=== PATIENT | male | born 1935 | race Caucasian/White ===

== ENCOUNTER 2018-01-08 18:39 | Observation (INO) | payer MEDICARE ==
[~2018-01-08] VITALS: Ht 180.3 cm; Wt 83.9 kg
[2018-01-08] MEDS ORDERED: DOXEPIN HCL25 MG PO (19:20)
[2018-01-08] MEDS ORDERED: TAMSULOSIN HCL0.4 MG PO (19:21)
[2018-01-08] MEDS ORDERED: RANITIDINE HCL150 M1 PO (19:21)
[2018-01-08] MEDS ORDERED: NEXIUM40 MG PO (19:22)
[2018-01-08] MEDS ORDERED: JANUVIA100 MG PO (19:22)
[2018-01-08] MEDS ORDERED: ATORVASTATIN CA20 MG PO (19:22)
[2018-01-08] MEDS ORDERED: FOSINOPRIL SODI20 MG PO (19:23)
[2018-01-08] MEDS ORDERED: FENOFIBRATE145 MG PO (19:23)
[2018-01-08] MEDS ORDERED: FUROSEMIDE40 MG PO (19:24)
[2018-01-08] MEDS ORDERED: AMLODIPINE BESYL5 MG PO (19:24)
[2018-01-08] MEDS ORDERED: LEXAPRO10 MG PO (19:25)
[2018-01-08] MEDS ORDERED: PIOGLITAZONE HC45 MG PO (19:25)
[2018-01-08] MEDS ORDERED: NAMENDA10 MG PO (19:26)
[2018-01-08] MEDS ORDERED: ARICEPT5 MG PO (19:27)
[2018-01-08] MEDS ORDERED: GLIPIZIDE ER5 MG PO (19:27)
[2018-01-08] MEDS ORDERED: ASPIRIN 81 MG CHEW TAB PO ONE (20:15)
[2018-01-08 20:16] LABS: BASOPHILS # (AUTO) 0.1 (0.0-0.1); EOSINOPHILS # (AUTO) 0.2 (0.0-0.4); EOSINOPHILS % 2.8 % (0.0-6.0); HEMATOCRIT 39.7 % (38.2-49.6); HEMOGLOBIN 13.8 g/dL (14.0-18.0); LYMPHOCYTES # (AUTO) 2.3 (1.0-3.2); LYMPHOCYTES % 29.3 % (18.0-39.1); MEAN CORPUSCULAR HGB CONC 34.8 g/dL (31-35); MONOCYTES # (AUTO) 1.2 (0.2-0.8); MONOCYTES % 15.6 % (4.4-11.3); NEUTROPHILS # (AUTO) 3.8 (2.1-6.9); NEUTROPHILS % 49.1 % (38.7-80.0); PLATELET COUNT 108 x10e3/uL (140-360); RED BLOOD COUNT 4.18 x10e6/uL (4.3-5.7)
[2018-01-08 20:20] LABS: INR 1.09; PARTIAL THROMBOPLASTIN TIME 27.2 seconds (23.8-35.5); PROTHROMBIN TIME 13.3 seconds (11.9-14.5)
[2018-01-08 20:30] LABS: ALBUMIN 3.6 g/dL (3.5-5.0); ALBUMIN/GLOBULIN RATIO 1.2 (0.8-2.0); ANION GAP 15.4 mmol/L (8-16); CALCIUM 10.6 mg/dL (8.4-10.2); CREATININE, SERUM 1.41 mg/dL (0.72-1.25); MAGNESIUM 1.8 MG/DL (1.3-2.1); POTASSIUM 3.4 mmol/L (3.5-5.1)
[2018-01-08 20:32] LABS: BILIRUBIN,URINE NEGATIVE (NEGATIVE); CLARITY,URINE CLEAR (CLEAR); COLOR,URINE YELLOW (YELLOW); KETONES,URINE NEGATIVE (NEGATIVE); LEUKOCYTE ESTERASE ,URINE NEGATIVE (NEGATIVE); NITRITE,URINE NEGATIVE (NEGATIVE); PROTEIN,URINE DIPSTICK NEGATIVE (NEGATIVE); URINE UROBILINOGEN 1 mg/dL (0.2 - 1)
[2018-01-08 20:45] LABS: BACTERIA,URINE FEW /HPF; EPITHELIAL CELLS,URINE RARE /LPF
[2018-01-08 20:49] LABS: CREATINE KINASE MB 1.1 ng/mL (0-5.0); THYROID STIMULATING HORMONE 2.718 uIU/mL (0.350-4.940)
[2018-01-08 21:05] LABS: EOSINOPHILS % (MANUAL) 1 % (0-7); LYMPHOCYTES % (MANUAL) 24 % (19-48); MONOCYTES % (MANUAL) 13 % (3.4-9.0); NEUTROPHILS % (MANUAL) 56 % (40-74); PLATELET ESTIMATE SLIGHTLY DECREASED; PLATELET MORPHOLOGY COMMENT NORMAL; RBC MORPHOLOGY COMMENT NORMAL; ROULEAU FEW
--- NOTE | 2018-01-08 21:37 | Diagnostic Imaging Report ---
CHEST SINGLE (PORTABLE), 01/08/2018 8:09 PM Technique: CHEST SINGLE (PORTABLE) Comparison: None available. Clinical history: New atrial fibrillation Findings: See Impression Impression: 1. Prominent cardiac silhouette, accentuated by portable technique. Aortic calcifications. 2. No edema or consolidation. 3. No effusion or pneumothorax. Signed by: Dr Shweta Mena MD on 01/08/2018 9:34 PM
[2018-01-08] MEDS ORDERED: SODIUM CHLORIDE 0.9% 250ML 250 ML IV ONE ×2 (23:15)
[2018-01-09] VITALS (10 sets, daily range): BP systolic 130–175; BP diastolic 79–99
[2018-01-09] MEDS ORDERED: FAMOTIDINE 20 MG/2 ML VIAL IV SCH
[2018-01-09] MEDS ORDERED: ONDANSETRON HCL INJ 2 MG/ML VIAL IV PRN
[2018-01-09] MEDS ORDERED: DEXTROSE 50% SYRINGE 50 ML IV PRN
[2018-01-09 05:30] LABS: BASOPHILS # (AUTO) 0.1 (0.0-0.1); EOSINOPHILS # (AUTO) 0.3 (0.0-0.4); EOSINOPHILS % 4.2 % (0.0-6.0); HEMATOCRIT 39.6 % (38.2-49.6); HEMOGLOBIN 13.3 g/dL (14.0-18.0); LYMPHOCYTES # (AUTO) 2.1 (1.0-3.2); LYMPHOCYTES % 33.2 % (18.0-39.1); MEAN CORPUSCULAR HEMOGLOBIN 32.4 pg (28-32); MEAN CORPUSCULAR HGB CONC 33.6 g/dL (31-35); MEAN CORPUSCULAR VOLUME 96.6 fL (81-99); MONOCYTES # (AUTO) 0.9 (0.2-0.8); NEUTROPHILS # (AUTO) 2.8 (2.1-6.9); NEUTROPHILS % 45.5 % (38.7-80.0); PLATELET COUNT 104 x10e3/uL (140-360); RED CELL DISTRIBUTION WIDTH 15.3 % (11.7-14.4)
[2018-01-09 05:58] LABS: ALANINE AMINOTRANSFERASE 27 IU/L (0-55); ALBUMIN 3.3 g/dL (3.5-5.0); ALBUMIN/GLOBULIN RATIO 1.3 (0.8-2.0); ALKALINE PHOSPHATASE 64 IU/L (40-150); ANION GAP 13.9 mmol/L (8-16); BLOOD UREA NITROGEN 22 mg/dL (7-26); BUN/CREATININE RATIO 21 (6-25); CALCIUM 9.7 mg/dL (8.4-10.2); CARBON DIOXIDE 26 mmol/L (22-29); CHLORIDE 109 mmol/L (98-107); CHOL/HDL RATIO 2.5 (3.9-4.7); CHOLESTEROL 118 MD/DL (0-199); CREATINE KINASE 80 IU/L (30-200); CREATININE, SERUM 1.05 mg/dL (0.72-1.25); EST GLOMERULAR FILTRATION RATE > 60 ML/MIN (60-); GLUCOSE 81 mg/dL (74-118); HDL CHOLESTEROL 48 MG/DL (40-60); LDL CHOLESTEROL 55 MG/DL (60-130); MAGNESIUM 1.7 MG/DL (1.3-2.1); SODIUM 146 mmol/L (136-145); TRIGLYCERIDES 77 MG/DL (0-149)
[2018-01-09 06:01] LABS: POTASSIUM 2.9 mmol/L (3.5-5.1)
[2018-01-09] MEDS: INSULIN REGULAR, HUMAN 100 UNIT/1 ML 3ML VIAL SQ SCH ×4 (07:30→20:37)
[2018-01-09] MEDS: ASPIRIN 81 MG ENTERIC COATED PO SCH (08:10)
[2018-01-09] MEDS: FAMOTIDINE 20 MG/2 ML VIAL IV SCH ×2 (08:10→20:37)
[2018-01-09] MEDS ORDERED: POTASSIUM CHLORIDE 10 MEQ TABCR PO ONE ×4 (08:30→11:30)
[2018-01-09 08:31] LABS: BAND NEUTROPHILS % (MANUAL) 1 %; EOSINOPHILS % (MANUAL) 5 % (0-7); LYMPHOCYTES % (MANUAL) 30 % (19-48); MONOCYTES % (MANUAL) 11 % (3.4-9.0); MYELOCYTES % (MANUAL) 2 % (0-0); NEUTROPHILS % (MANUAL) 49 % (40-74)
[2018-01-09 08:32] LABS: ANISOCYTOSIS SLIGHT; HYPOCHROMASIA SLIGHT; PLATELET ESTIMATE SLIGHTLY DECREASED; PLATELET MORPHOLOGY COMMENT FEW LARGE; RBC MORPHOLOGY COMMENT NORMAL
[2018-01-09] MEDS ORDERED: FUROSEMIDE 20 MG TAB PO SCH (09:00)
[2018-01-09] MEDS ORDERED: FUROSEMIDE 40 MG TAB PO SCH (11:45)
--- NOTE | 2018-01-09 13:51 | Consultation ---
DATE OF CONSULTATION: January 09, 2018 CARDIOLOGY CONSULTATION REASON FOR CONSULTATION: Near syncope, overall malaise. HISTORY OF PRESENT ILLNESS: Mr. Carcamo is an 82-year-old gentleman with past medical history of hypertension, type 2 diabetes, hypercholesterolemia, BPH, and history of cognitive impairment who presents to this institution after having a severe episode of generalized malaise, head pressure, and [id number] symptoms. Patient reports yesterday while sitting on the couch had just acute onset of pressure sensation in his head, felt overall generalized uncomfortable, and he points throughout his chest and abdomen region and was severe in nature. He denies any associated dyspnea or diaphoresis. He initially was concerned that his blood sugar was low, and upon checking his blood sugar, it was noted to be within normal limits. The 911 was called and upon arrival of the EMS, his symptoms were progressively improving. They brought him in to the hospital for further care and management and upon arrival, patient's symptoms largely subsided over a course of 30 minutes. His EKG revealed sinus rhythm, with LVH changes along with what appears to be outflow tract PVCs and occasional PACs. He was monitored with serial cardiac enzymes and was noted to be strongly negative x2. Overall, we had a long discussion with the patient today. He reports at baseline, he is very sedentary and has difficulty with walking and he blanks on account of severe dyspnea. His primary care physician had suggested him to exercise on a stationary bike; however, he does not do this. He reports his last ischemic evaluation was many-many years ago with a stress test, but he does not recall who did it for him. PAST MEDICAL HISTORY 1. Hypertension. 2. Hypercholesterolemia. 3. Type 2 diabetes. 4. Cognitive impairment, on Namenda and Aricept therapy. 5. BPH. 6. GERD. 7. Remote history of rheumatic fever as a child. PAST SURGICAL HISTORY: Denies. FAMILY HISTORY: Father in his late 60s secondary to heart attack. Mother in her 80s of unknown cause. Denies any premature family history of coronary artery disease. SOCIAL HISTORY: He is a lifelong nonsmoker. Denies any alcohol or illicit drug use. He is currently , lives with his , and he has been for 53 years. ALLERGIES: NO KNOW DRUG ALLERGIES. HOME MEDICATIONS: Include; 1. Atorvastatin 20 mg daily. 2. Lasix 20 mg every other day. 3. Fenofibrate 145 mg daily. 4. Norvasc 5 mg daily. 5. Tamsulosin 0.4 mg q.h.s. 6. Lisinopril 20 mg daily. 7. Aricept 10 mg daily. 8. Namenda 28 mg q.h.s. 9. Glimepiride 5 mg daily. 10. Doxepin 10 mg q.h.s. 11. Lexapro 10 mg daily. 12. Nexium 40 mg daily. 13. Actos 30 mg daily. 14. Zantac 150 mg b.i.d. 15. Januvia 100 mg daily. REVIEW OF SYSTEMS GENERAL: Positive for fatigue, malaise. Denies any fevers or chills. HEENT: Positive for transient head pressure, headache. No sore throat, stuffy nose. No visual complaints. RESPIRATORY: Reports exertional dyspnea class III. No cough. CARDIOVASCULAR: As per HPI. Two pillow use. No PND. GI: Has occasional GERD. Denies any bright red blood per rectum, melena, hematemesis. : Denies any dysuria. Has severe increased urinary frequency and BPH type symptoms. MUSCULOSKELETAL: Has arthritis in his lower back and knees. HEMATOLOGY: Denies any easy bruising or bleeding. ID: No known infectious issues. NEUROLOGIC: Positive for symptoms as noted above. Denies any prior history of TIA or stroke. Does have cognitive impairment. PSYCH: Denies any depression or anxiety symptoms. Remainder of review of systems is negative, otherwise mentioned. PHYSICAL EXAMINATION VITAL SIGNS: Height is 71 inches, weight of 185 pounds, BMI is 25.8. Temperature was 96.0, pulse of 54, respiratory rate 18, blood pressure is 154/79, and O2 sat 97% on room air. GENERAL: This is a well-nourished, well-developed gentleman who is currently in no apparent distress. HEENT: Normocephalic, atraumatic. Pupils equal, round, and reactive to light. Extraocular movements are intact. Oropharynx is clear. NECK: No elevation of jugular venous pulsation. Faint right carotid bruit. CARDIOVASCULAR: Regular rate and rhythm. Normal S1 and S2. A 1/6 diastolic murmur at left lower sternal border. LUNGS: Largely clear to auscultation bilaterally with good air entry. ABDOMEN: Soft, nontender, nondistended. Normoactive bowel sounds. No hepatosplenomegaly. BACK: No costovertebral angle tenderness. EXTREMITIES: Warm with 2+ bilateral radial pulses, 2+ bilateral femoral pulses, and 1+ pedal pulses. NEUROLOGIC: Moves all 4 extremities symmetrically. Does not appear focal. LABORATORY DATA: White count 6.2, hemoglobin 13.3, hematocrit 39.6, platelets of 104. Sodium 146, potassium 2.9, chloride 109, bicarb 26, BUN 22, creatinine 1.05, glucose of 121, calcium 9.7, magnesium 1.7. AST 26, ALT 27, alk phos 64, total protein 5.9, albumin 3.3. INR is 1.09. UA is unremarkable. Lipid profile shows total cholesterol of 118, HDL of 48, LDL of 75. TSH is 2.718. Troponin-1 from 0.017 to 0.011. BNP is 151. Chest x-ray is unremarkable. EKG reveals sinus rhythm with frequent PVCs that appears to be outflow tract and has nonspecific ST-T wave changes. DIAGNOSES 1. Overall fatigue, malaise, near syncope. 2. Questionable equivalent angina symptoms. 3. Premature ventricular contractions and bradycardia. 4. Hypertension, essential. 5. Hypercholesterolemia. 6. Type 2 diabetes with complications. 7. Hypokalemia. PLAN/RECOMMENDATIONS 1. From a cardiovascular standpoint, we will continue monitoring him on telemetry. 2. We will replete his potassium via p.o. therapy. 3. Seems to have ruled out for DC. 4. Echocardiogram was already done and reviewed, revealing LVH type changes, but normal left ventricular function and no significant valvular disease. 5. We will proceed with ischemic risk stratification tomorrow a.m. after another day of telemetry review. 1. We will check carotid duplex to evaluate his carotid arteries. 2. We will continue to follow this patient with you. 3. For the time being, we will go ahead and avoid any beta-mary anne therapy and slowly reintroduce his home meds. Job#: [id number] LPA
[2018-01-09 14:10] LABS: CREATINE KINASE MB 1.3 ng/mL (0-5.0)
[2018-01-09] MEDS ORDERED: DOXEPIN HCL 25 MG CAP PO SCH ×2 (21:00)
[2018-01-09] MEDS ORDERED: DONEPEZIL HCL 5 MG TAB PO SCH (21:00)
[2018-01-09] MEDS ORDERED: ATORVASTATIN 20 MG TAB PO SCH (21:00)
[2018-01-10] VITALS: BP 154/97
[2018-01-10 04:00] VITALS: BP 112/72
[2018-01-10 05:45] LABS: BASOPHILS # (AUTO) 0.1 (0.0-0.1); BASOPHILS % 0.9 % (0.0-1.0); EOSINOPHILS # (AUTO) 0.4 (0.0-0.4); EOSINOPHILS % 4.8 % (0.0-6.0); HEMATOCRIT 42.6 % (38.2-49.6); HEMOGLOBIN 14.1 g/dL (14.0-18.0); LYMPHOCYTES # (AUTO) 2.3 (1.0-3.2); LYMPHOCYTES % 28.8 % (18.0-39.1); MEAN CORPUSCULAR HGB CONC 33.1 g/dL (31-35); MEAN CORPUSCULAR VOLUME 96.8 fL (81-99); MONOCYTES # (AUTO) 1.1 (0.2-0.8); MONOCYTES % 13.5 % (4.4-11.3); NEUTROPHILS % 50.2 % (38.7-80.0); PLATELET COUNT 121 x10e3/uL (140-360); RED CELL DISTRIBUTION WIDTH 15.6 % (11.7-14.4)
[2018-01-10 06:03] LABS: ALBUMIN 3.5 g/dL (3.5-5.0); ALBUMIN/GLOBULIN RATIO 1.3 (0.8-2.0); CALCIUM 9.8 mg/dL (8.4-10.2); CREATININE, SERUM 1.29 mg/dL (0.72-1.25)
[2018-01-10] MEDS: INSULIN REGULAR, HUMAN 100 UNIT/1 ML 3ML VIAL SQ SCH ×2 (07:30→11:30)
[2018-01-10 08:00] VITALS: BP 131/87
[2018-01-10 08:40] VITALS: BP 112/72
[2018-01-10] MEDS ORDERED: REGADENOSON 0.4 MG/5 ML SYR IV ONE (08:59)
[2018-01-10] MEDS ORDERED: ESCITALOPRAM OXALATE 10 MG TAB PO SCH (09:00)
[2018-01-10] MEDS ORDERED: AMLODIPINE BESYLATE 5 MG TAB PO SCH (09:00)
[2018-01-10] MEDS ORDERED: TAMSULOSIN HCL 0.4 MG CAP PO SCH (09:00)
[2018-01-10] MEDS ORDERED: FOSINOPRIL SODIUM 20 MG PO SCH (09:00)
[2018-01-10] MEDS ORDERED: GLIPIZIDE 5 MG TAB ER PO SCH (09:00)
[2018-01-10] MEDS ORDERED: FOSINOPRIL SODIUM 10 MG TAB PO SCH (09:00)
[2018-01-10] MEDS ORDERED: MEMANTINE 10 MG TAB PO SCH (09:00)
[2018-01-10] MEDS ORDERED: NAMENDA 28MG NON FORMULARY ITEM PO SCH (09:00)
[2018-01-10] MEDS ORDERED: PANTOPRAZOLE SOD 40 MG TABEC PO SCH (09:00)
[2018-01-10] MEDS ORDERED: FENOFIBRATE 145 MG TAB PO SCH (09:00)
[2018-01-10 12:00] VITALS: BP 155/95
[2018-01-10] MEDS: FAMOTIDINE 20 MG/2 ML VIAL IV SCH (12:36)
[2018-01-10] MEDS: ASPIRIN 81 MG ENTERIC COATED PO SCH (12:36)
--- NOTE | 2018-01-10 14:11 | Cardiology Report ---
DATE OF STUDY: January 10, 2018 TITLE OF REPORT: LEXISCAN NUCLEAR STRESS TEST. INDICATION FOR STUDY: Equivalent angina symptoms with near syncope and inability to exercise. TECHNICAL DETAIL: After the risks, benefits, pros and cons of today's Lexiscan nuclear stress test were explained to the patient, patient agreed to proceed. Patient was brought down to the nuclear lab where he received a 10-mCi dose of technetium 99 tetrofosmin intravenously and after 40 minutes, patient was taken to the SPECT camera for resting myocardial perfusion imaging. He was then brought back to the stress lab where 12-lead EKG monitoring and blood pressure monitoring were obtained. He received a dose of Lexiscan 0.4 mg intravenously followed by a 30 mCi dose of technetium 99 tetrofosmin intravenously. Resting heart rate went from a baseline of 75 beats per minute to a maximum of 88 beats per minute. Blood pressure went from a baseline of 144/88 to 126/84, which is an appropriate hemodynamic response. Underlying EKG revealed normal sinus rhythm, left anterior fascicular block, LVH, and no ST-T wave changes. With Lexiscan infusion, there were no ischemic EKG changes or symptoms. After 25 minutes, she was then taken to the SPECT camera for stress myocardial perfusion imaging. FINDINGS 1. Resting myocardial perfusion imaging reveals a moderate size decreased count in the inferior wall. 2. Stress myocardial perfusion imaging reveals the same moderate size defect in the inferior wall that matches resting imaging. 3. Notable GI attenuation artifact on the stress test. 4. The following gated measurements were obtained: End-diastolic volume 102 mL, end-systolic volume 60 mL, calculated left ventricular ejection fraction was 42% with inferior wall hypokinesis. CONCLUSIONS 1. 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 2. Abnormal left ventricular function with EF of 42% with inferior wall hypokinesis. 3. No ischemia noted on the study. Findings of stress test were explained to the patient and family. Job#: [id number] VAS
== END 2018-01-10 14:00 | disposition home or self-care (01) ==
LOC: ER 18:39 → MED/SURG3 01-09 00:11
PROVIDERS: ADMIT Internal Medicine; ATTEND Internal Medicine
DX: I49.3 Ventricular premature depolarization (principal); R00.2 Palpitations; N28.9 Disorder of kidney and ureter, unspecified; Z83.3 Family history of diabetes mellitus; I10 Essential (primary) hypertension; E78.00 Pure hypercholesterolemia, unspecified; N40.0 Benign prostatic hyperplasia without lower urinary tract symptoms; G31.84 Mild cognitive impairment of uncertain or unknown etiology; Z82.41 Family history of sudden cardiac death; R55 Syncope and collapse; R53.83 Other fatigue; R00.1 Bradycardia, unspecified; E87.6 Hypokalemia; E11.8 Type 2 diabetes mellitus with unspecified complications; G30.9 Alzheimer's disease, unspecified; F02.80 Dementia in other diseases classified elsewhere, unspecified severity, without behavioral disturbance, psychotic disturbance, mood disturbance, and anxiety
CPT/HCPCS: 36415 ×3; 71045; 78452; 80053 ×3; 80061; 81001; 82550 ×2; 82553 ×2; 82948 ×2; 83735 ×2; 83880; 84443; 84484 ×2; 85025 ×3; 85610; 85730; 87086; 93005; 93017; 93306; 93880; 96372; 99284; A9502; G0378 ×2; S0164

== ENCOUNTER 2018-12-04 15:19 | Emergency (ER) | payer MEDICARE ==
[~2018-12-04] VITALS: Ht 177.8 cm; Wt 83.9 kg
[~2018-12-04 15:19] MED LIST: AMLODIPINE BESYL5 MG PO; ARICEPT5 MG PO; ATORVASTATIN CA20 MG PO; DOXEPIN HCL25 MG PO; FENOFIBRATE145 MG PO; FOSINOPRIL SODI20 MG PO; FUROSEMIDE40 MG PO; GLIPIZIDE ER5 MG PO; JANUVIA100 MG PO; LEXAPRO10 MG PO; NAMENDA10 MG PO; NEXIUM40 MG PO; PIOGLITAZONE HC45 MG PO; RANITIDINE HCL150 M1 PO; TAMSULOSIN HCL0.4 MG PO
--- NOTE | 2018-12-04 16:21 | Diagnostic Imaging Report ---
Exam: Left humerus-2 views History: Trauma Comparison: None Findings: No acute fracture or dislocation. The visualized portion of the left lung appears clear. Atherosclerotic calcifications involve the thoracic aorta. Impression: No acute osseous injury of the left humerus. Signed by: Frederick Bailey MD on 12/04/2018 4:18 PM
--- NOTE | 2018-12-04 16:46 | Diagnostic Imaging Report ---
EXAMINATION: RIBS UNILAT W/CXR- HOPD INDICATION: Trauma COMPARISON: Chest radiograph 01/08/2018 FINDINGS: TUBES and LINES: None. LUNGS: The lungs are well-inflated. Mild biapical pleural parenchymal thickening/scarring. No focal consolidation or pulmonary edema. PLEURA: No pleural effusion or pneumothorax. HEART AND MEDIASTINUM: The cardiomediastinal silhouette is normal in size and contour. Atherosclerotic calcifications involve the thoracic aorta. BONES AND SOFT TISSUES: No displaced rib fracture. UPPER ABDOMEN: No free air under the diaphragm. IMPRESSION: No displaced rib fractures. No focal pneumonia or pulmonary edema. Signed by: Frederick Bailey MD on 12/04/2018 4:42 PM
--- NOTE | 2018-12-04 17:09 | Diagnostic Imaging Report ---
EXAM: CT Chest WITHOUT intravenous contrast 12/04/2018 12:00 AM INDICATION: Trauma COMPARISON: Rib and humerus radiographs of 12/04/2018, chest radiograph of 01/08/2018 TECHNIQUE: Chest was scanned utilizing a multidetector helical scanner from the lung apex through the level of the adrenal glands without administration of IV contrast. Coronal and sagittal reformations were obtained. Routine protocol was performed. IV CONTRAST: None RADIATION DOSE: Total DLP: 581.1 mGy*cm. Dose modulation, iterative reconstruction, and/or weight based adjustment of the mA/kV was utilized to reduce the radiation dose to as low as reasonably achievable. COMPLICATIONS: None FINDINGS: LINES/ TUBES: None. LUNGS AND AIRWAYS: The central airways are patent. There is mild biapical pleural parenchymal thickening/scarring. No focal consolidation or pulmonary edema. Mild dependent subsegmental atelectasis in left lower lobe. PLEURA: No pleural effusion or pneumothorax. HEART AND MEDIASTINUM: 1.3 cm hypodense nodule in the left thyroid lobe. No supraclavicular, mediastinal, hilar, axillary, subpectoral, or internal mammary lymphadenopathy. The heart is not enlarged. No pericardial effusion. Atherosclerotic calcifications of the coronary arteries and thoracic aorta. UPPER ABDOMEN: Limited noncontrast views of the upper abdomen demonstrate no abnormality of the partially visualized liver, spleen, or pancreas. Bilateral renal cysts measuring up to 3.6 cm on the right and 2.1 cm on the left. 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 The gallbladder is decompressed with densely calcified gallstones. BONES: Minimally displaced left sixth and seventh lateral rib fractures. No associated hematoma SOFT TISSUES: Unremarkable. IMPRESSION: Minimally displaced left lateral sixth and seventh rib fractures. No associated hematoma. No pneumothorax. Cholelithiasis. Left thyroid lobe 1.3 cm hypodense nodule. Recommend further evaluation with follow-up thyroid ultrasound on a nonurgent basis. Signed by: Frederick Bailey MD on 12/04/2018 5:05 PM
[2018-12-04 17:18] VITALS: BP 149/88
== END 2018-12-04 17:22 | disposition home or self-care (01) ==
LOC: FSED 15:19
DX: R07.89 Other chest pain (principal); S22.42XA Multiple fractures of ribs, left side, initial encounter for closed fracture; W01.198A Fall on same level from slipping, tripping and stumbling with subsequent striking against other object, initial encounter; Y93.H2 Activity, gardening and landscaping; Y92.007 Garden or yard of unspecified non-institutional (private) residence as the place of occurrence of the external cause; F03.90 Unspecified dementia, unspecified severity, without behavioral disturbance, psychotic disturbance, mood disturbance, and anxiety; I10 Essential (primary) hypertension; E11.9 Type 2 diabetes mellitus without complications; K21.9 Gastro-esophageal reflux disease without esophagitis; F41.9 Anxiety disorder, unspecified
CPT/HCPCS: 71101; 71250; 93005; 99283

== ENCOUNTER 2021-04-03 09:38 | Inpatient (IN) | payer MEDICARE ==
[~2021-04-03] VITALS: Ht 182.9 cm; Wt 88.0 kg
[2021-04-03] MEDS ORDERED: VITAMIN E400 UNI1 PO (11:00)
[2021-04-03] MEDS ORDERED: TRICOR145 MG PO (11:00)
[2021-04-03] MEDS ORDERED: MULTI-VITAMIN1 EACH PO (11:00)
[2021-04-03] MEDS ORDERED: VITAMIN C500 MG PO (11:00)
[2021-04-03] MEDS ORDERED: ACETAMINOPHEN-1 EAC4 (11:00)
[2021-04-03] MEDS ORDERED: HYDROXYZINE HCL10 MG PO (11:00)
[2021-04-03] MEDS ORDERED: VITAMIN B-121000 MCG PO (11:00)
[2021-04-03] MEDS ORDERED: FLONASE ALLERG9.9 ML INH (11:00)
[2021-04-03] MEDS ORDERED: MYRBETRIQ25 MG (11:00)
[2021-04-03] MEDS ORDERED: LEVOTHYROXINE50 MC1 (11:00)
[2021-04-03] MEDS ORDERED: CALCIUM CARBON500 MG PO (11:00)
[2021-04-03] MEDS ORDERED: FAMOTIDINE20 MG PO (11:00)
[2021-04-03] MEDS ORDERED: ACETAMINOPHEN325 M2 (11:00)
[2021-04-03] MEDS ORDERED: POTASSIUM CHLO10 ME1 PO (11:00)
[2021-04-03] MEDS ORDERED: ACETAMINOPHEN 325 MG TAB PO ONE (13:15)
[2021-04-03] MEDS ORDERED: ENOXAPARIN SODIUM INJ 100 MG/ML SYR SC ONE (15:15)
[2021-04-03] MEDS ORDERED: ASPIRIN 81 MG CHEW TAB ONE (15:15)
[2021-04-03] MEDS ORDERED: SODIUM CHLORIDE FLUSH 10 ML SYR INJ PRN (16:30)
[2021-04-03] MEDS ORDERED: DEXTROSE 50% SYRINGE 50 ML IV PRN (16:45)
[2021-04-03 20:30] VITALS: BP 159/95
[2021-04-03 20:46] VITALS: BP 159/95
[2021-04-03 21:00] VITALS: BP 159/95
[2021-04-03] MEDS ORDERED: ENOXAPARIN INJ 80 MG/0.8 ML SYR SC SCH (21:00)
[2021-04-03] MEDS ORDERED: ENOXAPARIN SODIUM INJ 100 MG/ML SYR SC SCH (21:00)
[2021-04-04] VITALS (15 sets, daily range): BP systolic 108–176; BP diastolic 56–101
[2021-04-04] MEDS: HYDROCODONE/APAP 5MG-325MG TAB PO PRN ×3 (01:50→22:19)
[2021-04-04] MEDS ORDERED: METOPROLOL TARTRATE 25 MG TAB PO SCH ×2 (06:00→18:00)
[2021-04-04] MEDS ORDERED: ISOSORBIDE DINITRATE 20 MG TAB PO SCH (06:00)
[2021-04-04] MEDS ORDERED: HEPARIN 25,000 UNIT 25,000 UNIT in DEXTROSE 5% 250ML 250 ML IV SCH (06:00)
[2021-04-04] MEDS: ASPIRIN 325 MG TAB PO SCH ×2 (06:41→09:44)
[2021-04-04 06:56] LABS: BASOPHILS # (AUTO) 0.1 (0.0-0.1); EOSINOPHILS # (AUTO) 0.2 (0.0-0.4); HEMATOCRIT 39.9 % (38.2-49.6); HEMOGLOBIN 13.1 g/dL (14.0-18.0); LYMPHOCYTES # (AUTO) 0.8 (1.0-3.2); LYMPHOCYTES % 12.5 % (18.0-39.1); MEAN CORPUSCULAR HEMOGLOBIN 32.8 pg (28-32); MEAN CORPUSCULAR HGB CONC 32.8 g/dL (31-35); MONOCYTES # (AUTO) 0.8 (0.2-0.8); NEUTROPHILS # (AUTO) 4.2 (2.1-6.9); NEUTROPHILS % 68.5 % (38.7-80.0); PLATELET COUNT 95 x10e3/uL (140-360); RED BLOOD COUNT 3.99 x10e6/uL (4.3-5.7); RED CELL DISTRIBUTION WIDTH 14.6 % (11.7-14.4)
[2021-04-04 07:16] LABS: ANION GAP 16.1 mmol/L (8-16); CALCIUM 9.9 mg/dL (8.4-10.2); CREATININE, SERUM 0.98 mg/dL (0.72-1.25); POTASSIUM 3.1 mmol/L (3.5-5.1)
[2021-04-04 07:20] LABS: ALBUMIN 4.2 g/dL (3.5-5.0); MAGNESIUM 1.7 MG/DL (1.3-2.1); PHOSPHORUS 2.1 MG/DL (2.3-4.7)
[2021-04-04 07:37] LABS: CHOL/HDL RATIO 3.2 (3.9-4.7)
[2021-04-04 08:02] LABS: BILIRUBIN,DIRECT 0.5 mg/dL (0.0-0.5)
[2021-04-04] MEDS: HEPARIN 25,000 UNIT 1,000 UNIT in DEXTROSE 5% 250ML 250 ML IV SCH (08:50)
[2021-04-04] MEDS ORDERED: ASPIRIN 81 MG CHEW TAB PO SCH (09:00)
[2021-04-04] MEDS ORDERED: ASPIRIN 81 MG ENTERIC COATED PO SCH (09:00)
[2021-04-04] MEDS ORDERED: POTASSIUM CHLORIDE 20 MEQ TAB CR PO ONE (12:30)
[2021-04-04] MEDS: ISOSORBIDE DINITRATE 20 MG TAB PO SCH ×2 (14:42→22:06)
[2021-04-04 15:22] LABS: BASOPHILS # (AUTO) 0.1 (0.0-0.1); BASOPHILS % 1.1 % (0.0-1.0); EOSINOPHILS # (AUTO) 0.2 (0.0-0.4); EOSINOPHILS % 2.7 % (0.0-6.0); HEMOGLOBIN 12.1 g/dL (14.0-18.0); LYMPHOCYTES # (AUTO) 1.1 (1.0-3.2); LYMPHOCYTES % 17.4 % (18.0-39.1); MEAN CORPUSCULAR HEMOGLOBIN 33.1 pg (28-32); MEAN CORPUSCULAR VOLUME 106.6 fL (81-99); MONOCYTES # (AUTO) 0.9 (0.2-0.8); NEUTROPHILS # (AUTO) 4.2 (2.1-6.9); NEUTROPHILS % 63.4 % (38.7-80.0); PLATELET COUNT 105 x10e3/uL (140-360); RED BLOOD COUNT 3.66 x10e6/uL (4.3-5.7)
[2021-04-04] MEDS ORDERED: DEXTROSE 50% SYRINGE 50 ML IV PRN (16:45)
[2021-04-04] MEDS ORDERED: SODIUM CHLORIDE 0.9% 100 ML ONE (17:18)
[2021-04-04] MEDS ORDERED: IOPAMIDOL 370 MG/ML 200 ML INFUS..BTL INJ ONE (17:18)
[2021-04-04] MEDS: INSULIN REGULAR, HUMAN 100 UNIT/1 ML SQ SCH ×2 (17:40→21:11)
[2021-04-04] MEDS: HYDRALAZINE HCL 10 MG TAB PO SCH ×2 (18:10→22:00)
[2021-04-04] MEDS ORDERED: INSULIN REGULAR, HUMAN 100 UNIT/1 ML SQ SCH (21:00)
[2021-04-04] MEDS: ATORVASTATIN 20 MG TAB PO SCH (21:11)
[2021-04-05] VITALS (8 sets, daily range): BP systolic 122–152; BP diastolic 70–86
[2021-04-05] MEDS: HYDROCODONE/APAP 5MG-325MG TAB PO PRN ×3 (04:53→22:38)
[2021-04-05] MEDS: HYDRALAZINE HCL 10 MG TAB PO SCH ×3 (06:20→23:01)
[2021-04-05] MEDS: ISOSORBIDE DINITRATE 20 MG TAB PO SCH ×3 (06:21→23:01)
[2021-04-05] MEDS: INSULIN REGULAR, HUMAN 100 UNIT/1 ML SQ SCH ×4 (08:04→20:35)
[2021-04-05] MEDS: ASPIRIN 325 MG TAB PO SCH (08:22)
[2021-04-05] MEDS: Morphine 4mg Syringe 4 MG/ML INJ IV PRN ×2 (08:26→13:56)
[2021-04-05] MEDS: ONDANSETRON HCL INJ 2MG/ML 2ML 2 MG/ML VIAL IV PRN ×2 (08:26→13:56)
[2021-04-05 12:31] LABS: BASOPHILS # (AUTO) 0.1 (0.0-0.1); BASOPHILS % 0.6 % (0.0-1.0); EOSINOPHILS # (AUTO) 0.1 (0.0-0.4); EOSINOPHILS % 1.3 % (0.0-6.0); HEMATOCRIT 36.7 % (38.2-49.6); HEMOGLOBIN 11.7 g/dL (14.0-18.0); LYMPHOCYTES # (AUTO) 1.4 (1.0-3.2); LYMPHOCYTES % 15.7 % (18.0-39.1); MEAN CORPUSCULAR HEMOGLOBIN 32.6 pg (28-32); MEAN CORPUSCULAR HGB CONC 31.9 g/dL (31-35); MEAN CORPUSCULAR VOLUME 102.2 fL (81-99); MONOCYTES # (AUTO) 1.3 (0.2-0.8); MONOCYTES % 14.7 % (4.4-11.3); NEUTROPHILS # (AUTO) 5.8 (2.1-6.9); NEUTROPHILS % 66.2 % (38.7-80.0); PLATELET COUNT 92 x10e3/uL (140-360); RED BLOOD COUNT 3.59 x10e6/uL (4.3-5.7); RED CELL DISTRIBUTION WIDTH 15.1 % (11.7-14.4)
[2021-04-05 12:58] LABS: ANION GAP 12.1 mmol/L (8-16); CALCIUM 9.4 mg/dL (8.4-10.2); CREATININE, SERUM 1.06 mg/dL (0.72-1.25); POTASSIUM 3.1 mmol/L (3.5-5.1)
[2021-04-05] MEDS: HEPARIN 25,000 UNIT 1,000 UNIT in DEXTROSE 5% 250ML 250 ML IV SCH (13:00)
[2021-04-05] MEDS ORDERED: POTASSIUM CHLORIDE 10MEQ EA PO ONE (18:58)
[2021-04-05] MEDS: ATORVASTATIN 20 MG TAB PO SCH (20:29)
[2021-04-06] VITALS (14 sets, daily range): BP systolic 80–185; BP diastolic 54–91
[2021-04-06] MEDS: ONDANSETRON HCL INJ 2MG/ML 2ML 2 MG/ML VIAL IV PRN ×2 (02:34→09:18)
[2021-04-06] MEDS: Morphine 4mg Syringe 4 MG/ML INJ IV PRN ×2 (02:40→07:27)
[2021-04-06] MEDS: HYDRALAZINE HCL 10 MG TAB PO SCH ×3 (06:05→23:11)
[2021-04-06] MEDS: ISOSORBIDE DINITRATE 20 MG TAB PO SCH ×3 (06:06→23:12)
[2021-04-06] MEDS: HEPARIN 25,000 UNIT 1,000 UNIT in DEXTROSE 5% 250ML 250 ML IV SCH (06:30)
[2021-04-06] MEDS: INSULIN REGULAR, HUMAN 100 UNIT/1 ML SQ SCH ×4 (07:17→21:00)
[2021-04-06] MEDS: ASPIRIN 325 MG TAB PO SCH (07:24)
[2021-04-06] MEDS: HYDROCODONE/APAP 5MG-325MG TAB PO PRN (09:18)
[2021-04-06] MEDS ORDERED: FENTANYL CITRATE/PF 100MCG/2 ML INJ ONE ×2 (11:27→13:26)
[2021-04-06] MEDS ORDERED: LIDOCAINE HCL 2% LOCAL 20 ML VIAL ONE (11:27)
[2021-04-06] MEDS ORDERED: MIDAZOLAM HCL 2 MG/2 ML VIAL ONE ×2 (11:27→13:06)
[2021-04-06] MEDS ORDERED: IOPAMIDOL 300MG/ML 100 ML INFUS..BTL IV ONE (11:28)
[2021-04-06] MEDS ORDERED: HEPARIN SOD/SOD CHLORIDE 2,000 ML ONE (11:28)
[2021-04-06] MEDS ORDERED: SODIUM CHLORIDE 0.9% 1000ML 1,000 ML ONE ×2 (11:28→13:26)
[2021-04-06] MEDS ORDERED: PROTAMINE SULFATE 10 MG/ML 5 ML VIAL ONE (12:50)
[2021-04-06] MEDS ORDERED: SODIUM CHLORIDE 0.9% 100 ML ONE (12:51)
[2021-04-06] MEDS ORDERED: ASPIRIN 325 MG TAB ONE (14:07)
[2021-04-06] MEDS ORDERED: CLOPIDOGREL BISULFATE 75 MG TAB ONE (14:07)
[2021-04-06] MEDS ORDERED: SODIUM CHLORIDE 0.9% 500ML 500 ML IV ONE (15:15)
[2021-04-06 15:56] LABS: HEMOGLOBIN 10.5 g/dL (14.0-18.0)
[2021-04-06] MEDS ORDERED: CLOPIDOGREL BISULFATE 75 MG TAB PO ONE (16:45)
[2021-04-06] MEDS: ATORVASTATIN 20 MG TAB PO SCH (21:19)
[2021-04-07] VITALS (10 sets, daily range): BP systolic 123–163; BP diastolic 74–89
[2021-04-07] MEDS: HYDRALAZINE HCL 10 MG TAB PO SCH ×3 (06:20→21:19)
[2021-04-07] MEDS: ISOSORBIDE DINITRATE 20 MG TAB PO SCH ×3 (06:21→21:20)
[2021-04-07] MEDS: INSULIN REGULAR, HUMAN 100 UNIT/1 ML SQ SCH ×4 (08:29→21:18)
[2021-04-07] MEDS: ASPIRIN 81 MG ENTERIC COATED PO SCH (08:29)
[2021-04-07] MEDS: CLOPIDOGREL BISULFATE 75 MG TAB PO SCH (08:30)
[2021-04-07 09:00] LABS: BASOPHILS % 0.4 % (0.0-1.0); EOSINOPHILS % 0.3 % (0.0-6.0); HEMATOCRIT 33.5 % (38.2-49.6); HEMOGLOBIN 10.3 g/dL (14.0-18.0); LYMPHOCYTES # (AUTO) 0.9 (1.0-3.2); LYMPHOCYTES % 9.6 % (18.0-39.1); MEAN CORPUSCULAR HEMOGLOBIN 32.6 pg (28-32); MEAN CORPUSCULAR HGB CONC 30.7 g/dL (31-35); MONOCYTES # (AUTO) 1.8 (0.2-0.8); MONOCYTES % 18.7 % (4.4-11.3); NEUTROPHILS # (AUTO) 6.5 (2.1-6.9); NEUTROPHILS % 69.2 % (38.7-80.0); PLATELET COUNT 84 x10e3/uL (140-360); RED BLOOD COUNT 3.16 x10e6/uL (4.3-5.7); RED CELL DISTRIBUTION WIDTH 14.9 % (11.7-14.4)
[2021-04-07 09:19] LABS: ANION GAP 14.2 mmol/L (8-16); CALCIUM 8.7 mg/dL (8.4-10.2); CREATININE, SERUM 0.9 mg/dL (0.72-1.25); POTASSIUM 3.2 mmol/L (3.5-5.1)
[2021-04-07] MEDS: Morphine 4mg Syringe 4 MG/ML INJ IV PRN ×2 (10:15→21:19)
[2021-04-07] MEDS: ONDANSETRON HCL INJ 2MG/ML 2ML 2 MG/ML VIAL IV PRN (10:15)
[2021-04-07] MEDS: HYDROCODONE/APAP 5MG-325MG TAB PO PRN ×2 (12:23→23:44)
[2021-04-07] MEDS: APIXAB 2.5 MG TABLET PO SCH (17:48)
[2021-04-07] MEDS: ATORVASTATIN 20 MG TAB PO SCH (20:44)
[2021-04-08] VITALS (11 sets, daily range): BP systolic 133–167; BP diastolic 79–99
[2021-04-08] MEDS: HYDRALAZINE HCL 10 MG TAB PO SCH ×3 (06:30→22:23)
[2021-04-08] MEDS: ISOSORBIDE DINITRATE 20 MG TAB PO SCH ×3 (06:30→22:23)
[2021-04-08] MEDS: ASPIRIN 81 MG ENTERIC COATED PO SCH (07:59)
[2021-04-08] MEDS: APIXAB 2.5 MG TABLET PO SCH ×2 (07:59→16:51)
[2021-04-08] MEDS: CLOPIDOGREL BISULFATE 75 MG TAB PO SCH (07:59)
[2021-04-08] MEDS: ONDANSETRON HCL INJ 2MG/ML 2ML 2 MG/ML VIAL IV PRN (08:00)
[2021-04-08] MEDS: Morphine 4mg Syringe 4 MG/ML INJ IV PRN (08:00)
[2021-04-08] MEDS: INSULIN REGULAR, HUMAN 100 UNIT/1 ML SQ SCH ×4 (08:23→21:48)
[2021-04-08] MEDS: HYDROCODONE/APAP 5MG-325MG TAB PO PRN (14:35)
[2021-04-08] MEDS ORDERED: QUETIAPINE FUMARATE 25 MG TAB PO ONE (19:05)
[2021-04-08] MEDS: ATORVASTATIN 20 MG TAB PO SCH (21:50)
[2021-04-09] VITALS (9 sets, daily range): BP systolic 128–165; BP diastolic 79–109
[2021-04-09] MEDS: HYDRALAZINE HCL 10 MG TAB PO SCH ×3 (06:25→22:23)
[2021-04-09] MEDS: ISOSORBIDE DINITRATE 20 MG TAB PO SCH ×3 (06:26→22:23)
[2021-04-09] MEDS: INSULIN REGULAR, HUMAN 100 UNIT/1 ML SQ SCH ×4 (07:34→21:12)
[2021-04-09] MEDS: ASPIRIN 81 MG ENTERIC COATED PO SCH (08:11)
[2021-04-09] MEDS: APIXAB 2.5 MG TABLET PO SCH ×2 (08:11→17:01)
[2021-04-09] MEDS: CLOPIDOGREL BISULFATE 75 MG TAB PO SCH (08:11)
[2021-04-09] MEDS ORDERED: HYDRALAZINE HCL 20 MG/ML VIAL IV PRN (14:00)
[2021-04-09] MEDS ORDERED: MELATONIN 5 MG TABLET PO PRN (14:00)
[2021-04-09] MEDS ORDERED: BENZONATATE 100 MG CAP PO PRN (14:00)
[2021-04-09] MEDS ORDERED: DIPHENHYDRAMINE HCL 25 MG CAP PO PRN (14:00)
[2021-04-09] MEDS ORDERED: DOCUSATE SODIUM 100 MG CAP PO PRN (14:00)
[2021-04-09] MEDS ORDERED: LIDOCAINE 4% PATCH TP PRN (14:00)
[2021-04-09] MEDS: HYDROCODONE/APAP 5MG-325MG TAB PO PRN (14:22)
[2021-04-09] MEDS: POTASSIUM CHLORIDE 20 MEQ TAB CR PO PRN (15:30)
[2021-04-09] MEDS: ATORVASTATIN 20 MG TAB PO SCH (21:10)
[2021-04-10] VITALS (8 sets, daily range): BP systolic 110–155; BP diastolic 67–108
[2021-04-10 06:19] LABS: BASOPHILS % 0.3 % (0.0-1.0); EOSINOPHILS % 0.1 % (0.0-6.0); HEMATOCRIT 26.9 % (38.2-49.6); HEMOGLOBIN 8.7 g/dL (14.0-18.0); LYMPHOCYTES # (AUTO) 0.8 (1.0-3.2); LYMPHOCYTES % 6.8 % (18.0-39.1); MEAN CORPUSCULAR HEMOGLOBIN 32.8 pg (28-32); MEAN CORPUSCULAR HGB CONC 32.3 g/dL (31-35); MEAN CORPUSCULAR VOLUME 101.5 fL (81-99); MONOCYTES # (AUTO) 1.7 (0.2-0.8); MONOCYTES % 15.2 % (4.4-11.3); NEUTROPHILS # (AUTO) 8.5 (2.1-6.9); NEUTROPHILS % 75.4 % (38.7-80.0); PLATELET COUNT 113 x10e3/uL (140-360); RED BLOOD COUNT 2.65 x10e6/uL (4.3-5.7); RED CELL DISTRIBUTION WIDTH 14.7 % (11.7-14.4)
[2021-04-10] MEDS: HYDRALAZINE HCL 10 MG TAB PO SCH ×3 (06:35→21:19)
[2021-04-10] MEDS: ISOSORBIDE DINITRATE 20 MG TAB PO SCH ×3 (06:35→21:21)
[2021-04-10 06:48] LABS: ANION GAP 14.2 mmol/L (8-16); CALCIUM 8.8 mg/dL (8.4-10.2); CREATININE, SERUM 0.94 mg/dL (0.72-1.25); POTASSIUM 3.2 mmol/L (3.5-5.1)
[2021-04-10] MEDS: APIXAB 2.5 MG TABLET PO SCH ×2 (08:27→17:21)
[2021-04-10] MEDS: ASPIRIN 81 MG ENTERIC COATED PO SCH (08:27)
[2021-04-10] MEDS: CLOPIDOGREL BISULFATE 75 MG TAB PO SCH (08:27)
[2021-04-10] MEDS: POTASSIUM CHLORIDE 20 MEQ TAB CR PO PRN (08:35)
[2021-04-10] MEDS: INSULIN REGULAR, HUMAN 100 UNIT/1 ML SQ SCH ×4 (08:45→21:01)
[2021-04-10] MEDS ORDERED: POTASSIUM CHLORIDE 20 MEQ TAB CR PO PRN (15:00)
[2021-04-10] MEDS ORDERED: POTASSIUM CHLORIDE 20 MEQ TAB CR PO ONE (15:30)
[2021-04-10] MEDS: ATORVASTATIN 20 MG TAB PO SCH (21:00)
[2021-04-11] VITALS (8 sets, daily range): BP systolic 106–131; BP diastolic 62–82
[2021-04-11] MEDS: Morphine 4mg Syringe 4 MG/ML INJ IV PRN (05:37)
[2021-04-11] MEDS: ISOSORBIDE DINITRATE 20 MG TAB PO SCH ×3 (05:38→22:00)
[2021-04-11] MEDS: HYDRALAZINE HCL 10 MG TAB PO SCH ×3 (05:38→22:00)
[2021-04-11 05:45] LABS: BASOPHILS % 0.3 % (0.0-1.0); EOSINOPHILS % 0.2 % (0.0-6.0); HEMATOCRIT 25.3 % (38.2-49.6); HEMOGLOBIN 8.3 g/dL (14.0-18.0); LYMPHOCYTES % 8.2 % (18.0-39.1); MEAN CORPUSCULAR HEMOGLOBIN 32.9 pg (28-32); MEAN CORPUSCULAR HGB CONC 32.8 g/dL (31-35); MEAN CORPUSCULAR VOLUME 100.4 fL (81-99); MONOCYTES # (AUTO) 1.7 (0.2-0.8); MONOCYTES % 14.9 % (4.4-11.3); NEUTROPHILS # (AUTO) 8.5 (2.1-6.9); NEUTROPHILS % 73.4 % (38.7-80.0); PLATELET COUNT 147 x10e3/uL (140-360); RED BLOOD COUNT 2.52 x10e6/uL (4.3-5.7); RED CELL DISTRIBUTION WIDTH 14.4 % (11.7-14.4)
[2021-04-11 06:34] LABS: CALCIUM 8.8 mg/dL (8.4-10.2); POTASSIUM 3.2 mmol/L (3.5-5.1)
[2021-04-11 06:55] LABS: CREATININE, SERUM 0.92 mg/dL (0.72-1.25)
[2021-04-11 07:00] LABS: ANION GAP 14.2 mmol/L (8-16)
[2021-04-11] MEDS: INSULIN REGULAR, HUMAN 100 UNIT/1 ML SQ SCH ×4 (08:30→21:00)
[2021-04-11] MEDS: ASPIRIN 81 MG ENTERIC COATED PO SCH (09:52)
[2021-04-11] MEDS: APIXAB 2.5 MG TABLET PO SCH ×2 (09:52→17:51)
[2021-04-11] MEDS: POTASSIUM CHLORIDE 20 MEQ TAB CR PO PRN (09:52)
[2021-04-11] MEDS: CLOPIDOGREL BISULFATE 75 MG TAB PO SCH (09:52)
[2021-04-11] MEDS ORDERED: ONDANSETRON HCL 4 MG ORAL DISINTEGRATING TAB PO PRN (17:45)
[2021-04-11] MEDS: ATORVASTATIN 20 MG TAB PO SCH (21:00)
[2021-04-12] VITALS (8 sets, daily range): BP systolic 107–154; BP diastolic 61–96
[2021-04-12] MEDS: ACETAMINOPHEN 325 MG TAB PO PRN (03:00)
[2021-04-12] MEDS: ISOSORBIDE DINITRATE 20 MG TAB PO SCH ×3 (05:41→21:17)
[2021-04-12 06:16] LABS: BASOPHILS # (AUTO) 0.1 (0.0-0.1); BASOPHILS % 0.4 % (0.0-1.0); EOSINOPHILS # (AUTO) 0.1 (0.0-0.4); EOSINOPHILS % 0.6 % (0.0-6.0); HEMATOCRIT 26.5 % (38.2-49.6); HEMOGLOBIN 8.3 g/dL (14.0-18.0); LYMPHOCYTES # (AUTO) 1.1 (1.0-3.2); LYMPHOCYTES % 9.4 % (18.0-39.1); MEAN CORPUSCULAR HEMOGLOBIN 31.8 pg (28-32); MEAN CORPUSCULAR HGB CONC 31.3 g/dL (31-35); MEAN CORPUSCULAR VOLUME 101.5 fL (81-99); MONOCYTES # (AUTO) 1.7 (0.2-0.8); MONOCYTES % 15.3 % (4.4-11.3); NEUTROPHILS % 70.3 % (38.7-80.0); PLATELET COUNT 178 x10e3/uL (140-360); RED BLOOD COUNT 2.61 x10e6/uL (4.3-5.7); RED CELL DISTRIBUTION WIDTH 14.5 % (11.7-14.4)
[2021-04-12] MEDS: HYDRALAZINE HCL 10 MG TAB PO SCH ×3 (06:21→21:17)
[2021-04-12 06:33] LABS: ANION GAP 15.4 mmol/L (8-16); CALCIUM 9.3 mg/dL (8.4-10.2); CREATININE, SERUM 0.93 mg/dL (0.72-1.25); POTASSIUM 3.4 mmol/L (3.5-5.1)
[2021-04-12] MEDS: INSULIN REGULAR, HUMAN 100 UNIT/1 ML SQ SCH ×4 (07:30→21:21)
[2021-04-12] MEDS: CLOPIDOGREL BISULFATE 75 MG TAB PO SCH (12:01)
[2021-04-12] MEDS: APIXAB 2.5 MG TABLET PO SCH ×2 (12:01→16:36)
[2021-04-12] MEDS: ASPIRIN 81 MG ENTERIC COATED PO SCH (12:01)
[2021-04-12] MEDS: ATORVASTATIN 20 MG TAB PO SCH (21:17)
[2021-04-13] VITALS: BP 152/92
[2021-04-13 04:00] VITALS: BP 150/87
[2021-04-13] MEDS: ISOSORBIDE DINITRATE 20 MG TAB PO SCH ×2 (05:27→13:26)
[2021-04-13] MEDS: HYDRALAZINE HCL 10 MG TAB PO SCH ×2 (05:27→13:26)
[2021-04-13] MEDS: INSULIN REGULAR, HUMAN 100 UNIT/1 ML SQ SCH ×3 (07:30→16:30)
[2021-04-13 08:06] VITALS: BP 138/80
[2021-04-13 08:12] VITALS: BP 138/80
[2021-04-13] MEDS: CIPROFLOXACIN 500 MG TAB PO SCH ×2 (08:42→16:44)
[2021-04-13] MEDS: ASPIRIN 81 MG ENTERIC COATED PO SCH (08:42)
[2021-04-13] MEDS: CLOPIDOGREL BISULFATE 75 MG TAB PO SCH (08:42)
[2021-04-13] MEDS: APIXAB 2.5 MG TABLET PO SCH ×2 (08:42→16:44)
[2021-04-13] MEDS: DOXYCYCLINE HYCLATE TABLET 100 MG TAB PO SCH ×2 (08:43→16:44)
[2021-04-13 11:45] VITALS: BP 143/91
[2021-04-13] MEDS: ACETAMINOPHEN 325 MG TAB PO PRN (14:04)
[2021-04-13 16:36] VITALS: BP 128/79
== END 2021-04-13 18:29 | DRG 253 ==
LOC: FSED 09:49 → ERHOLD 16:32 → MED/SURG2 20:16 → IMCU 04-04 08:04 → MED/SURG3 04-10 16:15
PROVIDERS: ADMIT Internal Medicine; ATTEND Internal Medicine
PROC: 047M3D1 Dilation of Right Popliteal Artery with Intraluminal Device, using Drug-Coated Balloon, Percutaneous Approach (ICD-10-PCS; principal; 2021-04-06)
PROC: B41D1ZZ Fluoroscopy of Aorta and Bilateral Lower Extremity Arteries using Low Osmolar Contrast (ICD-10-PCS; 2021-04-06)
DX: I72.4 Aneurysm of artery of lower extremity (principal); F03.91 Unspecified dementia, unspecified severity, with behavioral disturbance; L03.115 Cellulitis of right lower limb; I51.3 Intracardiac thrombosis, not elsewhere classified; I10 Essential (primary) hypertension; E78.5 Hyperlipidemia, unspecified; E03.9 Hypothyroidism, unspecified; K21.9 Gastro-esophageal reflux disease without esophagitis; H91.93 Unspecified hearing loss, bilateral; E11.42 Type 2 diabetes mellitus with diabetic polyneuropathy; Z20.822 Contact with and (suspected) exposure to COVID-19; E66.9 Obesity, unspecified; E11.51 Type 2 diabetes mellitus with diabetic peripheral angiopathy without gangrene; L97.519 Non-pressure chronic ulcer of other part of right foot with unspecified severity; I70.235 Atherosclerosis of native arteries of right leg with ulceration of other part of foot; Z68.26 Body mass index [BMI] 26.0-26.9, adult
CPT/HCPCS: 36247; 36415; 37224; 37226; 75625; 75635; 75716; 76937; 80048; 80053; 80061; 80076; 81003; 82948; 83036; 83735; 84100; 84132; 85014; 85018; 85025; 85730; 86022; 93005; 93926; 93971; 96372; 97139; 99152; 99153; 99284; C1725; C1760; C1769; C1874; C1887; C1894; J1650; J1817; J2001; J2250; J2270; J2405; J2720; J3010; J7030; J7040; J7050; Q9967; U0002

== ENCOUNTER 2021-04-15 00:57 | Inpatient (IN) | payer MEDICARE ==
[~2021-04-15] VITALS: Ht 182.9 cm; Wt 88.0 kg
[~2021-04-15 00:57] MED LIST changes: +ACETAMINOPHEN-1 EAC4; +ACETAMINOPHEN325 M2; +CALCIUM CARBON500 MG PO; +FAMOTIDINE20 MG PO; +FLONASE ALLERG9.9 ML INH; +HYDROXYZINE HCL10 MG PO; +LEVOTHYROXINE50 MC1; +MULTI-VITAMIN1 EACH PO; +MYRBETRIQ25 MG; +POTASSIUM CHLO10 ME1 PO; +TRICOR145 MG PO; +VITAMIN B-121000 MCG PO; +VITAMIN C500 MG PO; +VITAMIN E400 UNI1 PO
[2021-04-15 01:22] LABS: BASOPHILS # (AUTO) 0.1 (0.0-0.1); BASOPHILS % 0.4 % (0.0-1.0); EOSINOPHILS # (AUTO) 0.2 (0.0-0.4); HEMATOCRIT 27.6 % (38.2-49.6); HEMOGLOBIN 8.7 g/dL (14.0-18.0); LYMPHOCYTES # (AUTO) 1.1 (1.0-3.2); LYMPHOCYTES % 7.3 % (18.0-39.1); MEAN CORPUSCULAR HEMOGLOBIN 32.2 pg (28-32); MEAN CORPUSCULAR HGB CONC 31.5 g/dL (31-35); MEAN CORPUSCULAR VOLUME 102.2 fL (81-99); MONOCYTES % 12.5 % (4.4-11.3); NEUTROPHILS # (AUTO) 11.1 (2.1-6.9); PLATELET COUNT 287 x10e3/uL (140-360); RED CELL DISTRIBUTION WIDTH 14.7 % (11.7-14.4)
[2021-04-15 01:31] LABS: INR 1.26; PROTHROMBIN TIME 16.8 seconds (11.9-14.5)
[2021-04-15 01:32] LABS: PARTIAL THROMBOPLASTIN TIME 43.1 seconds (23.8-35.5)
[2021-04-15 01:39] LABS: AMYLASE 26 U/L (25-125); LIPASE 68 U/L (8-78)
[2021-04-15] MEDS ORDERED: METOPROLOL TARTRATE INJ 1 MG/ML VIAL IV ONE (01:45)
[2021-04-15 01:46] LABS: ALBUMIN 2.5 g/dL (3.5-5.0); ALBUMIN/GLOBULIN RATIO 0.8 (0.8-2.0); ANION GAP 16.2 mmol/L (8-16); CREATININE, SERUM 1.17 mg/dL (0.72-1.25); POTASSIUM 3.2 mmol/L (3.5-5.1)
[2021-04-15] MEDS ORDERED: ONDANSETRON HCL INJ 2MG/ML 2ML 2 MG/ML VIAL IV STA ×2 (01:48→02:30)
[2021-04-15 01:53] LABS: CREATINE KINASE MB 2.6 ng/mL (0-5.0)
[2021-04-15] MEDS: SODIUM CHLORIDE 0.9% 1000ML 1,000 ML IV SCH ×3 (02:10→18:00)
[2021-04-15] MEDS ORDERED: Pantoprazole IV 80 MG in SODIUM CHLORIDE 0.9% 100 ML IV SCH (02:30)
[2021-04-15] MEDS ORDERED: LORAZEPAM INJ 2 MG/ML VIAL IV ONE (02:30)
[2021-04-15 07:42] LABS: BASOPHILS # (AUTO) 0.1 (0.0-0.1); BASOPHILS % 0.5 % (0.0-1.0); EOSINOPHILS # (AUTO) 0.1 (0.0-0.4); EOSINOPHILS % 1.1 % (0.0-6.0); HEMATOCRIT 24.6 % (38.2-49.6); HEMOGLOBIN 7.7 g/dL (14.0-18.0); LYMPHOCYTES % 7.3 % (18.0-39.1); MEAN CORPUSCULAR HEMOGLOBIN 31.8 pg (28-32); MEAN CORPUSCULAR HGB CONC 31.3 g/dL (31-35); MEAN CORPUSCULAR VOLUME 101.7 fL (81-99); MONOCYTES # (AUTO) 1.6 (0.2-0.8); NEUTROPHILS # (AUTO) 9.2 (2.1-6.9); NEUTROPHILS % 70.7 % (38.7-80.0); PLATELET COUNT 244 x10e3/uL (140-360); RED BLOOD COUNT 2.42 x10e6/uL (4.3-5.7); RED CELL DISTRIBUTION WIDTH 14.5 % (11.7-14.4)
[2021-04-15 08:08] VITALS: BP 150/89
[2021-04-15 10:58] LABS: % IRON SATURATION 23 % (15-50); IRON 41 ug/dL (65-175); TOTAL IRON BINDING CAPACITY 182 ug/dL (261-478); TRANSFERRIN 130 mg/dL (174-364)
[2021-04-15 11:46] LABS: CREATINE KINASE MB 3.3 ng/mL (0-5.0)
[2021-04-15] MEDS: Pantoprazole IV 40 MG in SODIUM CHLORIDE 0.9% 50ML 50 ML IV SCH ×3 (12:07→20:45)
[2021-04-15 12:23] VITALS: BP 138/76
[2021-04-15 12:29] LABS: BASOPHILS % 0.3 % (0.0-1.0); EOSINOPHILS # (AUTO) 0.1 (0.0-0.4); EOSINOPHILS % 1.2 % (0.0-6.0); HEMATOCRIT 25.3 % (38.2-49.6); LYMPHOCYTES # (AUTO) 0.9 (1.0-3.2); LYMPHOCYTES % 7.6 % (18.0-39.1); MEAN CORPUSCULAR HGB CONC 31.6 g/dL (31-35); MEAN CORPUSCULAR VOLUME 101.2 fL (81-99); MONOCYTES # (AUTO) 1.3 (0.2-0.8); MONOCYTES % 11.5 % (4.4-11.3); NEUTROPHILS # (AUTO) 8.1 (2.1-6.9); NEUTROPHILS % 70.1 % (38.7-80.0); PLATELET COUNT 233 x10e3/uL (140-360); RED CELL DISTRIBUTION WIDTH 14.6 % (11.7-14.4)
[2021-04-15] MEDS ORDERED: POVIDONE IODINE 0.05% 0.05 % ML PO ONE (12:44)
[2021-04-15] MEDS ORDERED: PROPOFOL IV EMULSION 10 MG/ML 20 ML VIAL ONE (12:44)
[2021-04-15] MEDS: BALSAM PERU/CASTOR OIL 60 GM OINT...G. TP SCH (12:45)
[2021-04-15] MEDS: OYST-CAL-D 500MG TABLET PO SCH ×2 (15:00→21:00)
[2021-04-15 16:06] VITALS: BP 140/86
[2021-04-15] MEDS: IRON SUCROSE 100 MG in SODIUM CHLORIDE 0.9% 100 ML 100 ML IV SCH (18:02)
[2021-04-15 19:07] LABS: BASOPHILS # (AUTO) 0.1 (0.0-0.1); BASOPHILS % 0.6 % (0.0-1.0); EOSINOPHILS # (AUTO) 0.2 (0.0-0.4); EOSINOPHILS % 1.5 % (0.0-6.0); HEMATOCRIT 25.8 % (38.2-49.6); LYMPHOCYTES # (AUTO) 0.8 (1.0-3.2); LYMPHOCYTES % 7.7 % (18.0-39.1); MEAN CORPUSCULAR HEMOGLOBIN 32.4 pg (28-32); MEAN CORPUSCULAR VOLUME 104.5 fL (81-99); MONOCYTES # (AUTO) 1.1 (0.2-0.8); MONOCYTES % 10.5 % (4.4-11.3); NEUTROPHILS # (AUTO) 7.8 (2.1-6.9); NEUTROPHILS % 71.2 % (38.7-80.0); PLATELET COUNT 205 x10e3/uL (140-360); RED BLOOD COUNT 2.47 x10e6/uL (4.3-5.7); RED CELL DISTRIBUTION WIDTH 14.6 % (11.7-14.4)
[2021-04-15 19:33] LABS: CREATINE KINASE MB 3.2 ng/mL (0-5.0)
[2021-04-15 20:00] VITALS: BP_SYST 109; BP_SYST 110; BP_DIAS 62; BP_DIAS 94
[2021-04-15] MEDS: DONEPEZIL HCL 5 MG TAB PO SCH (21:00)
[2021-04-16] VITALS (7 sets, daily range): BP systolic 99–175; BP diastolic 76–96
[2021-04-16] MEDS: Pantoprazole IV 40 MG in SODIUM CHLORIDE 0.9% 50ML 50 ML IV SCH ×5 (01:45→21:45)
[2021-04-16] MEDS: SODIUM CHLORIDE 0.9% 1000ML 1,000 ML IV SCH ×3 (02:00→18:00)
[2021-04-16] MEDS: LEVOTHYROXINE SODIUM 50 MCG TAB PO SCH (06:00)
[2021-04-16 06:14] LABS: BASOPHILS # (AUTO) 0.1 (0.0-0.1); BASOPHILS % 0.6 % (0.0-1.0); EOSINOPHILS # (AUTO) 0.2 (0.0-0.4); EOSINOPHILS % 1.5 % (0.0-6.0); HEMATOCRIT 26.2 % (38.2-49.6); HEMOGLOBIN 8.4 g/dL (14.0-18.0); LYMPHOCYTES # (AUTO) 0.8 (1.0-3.2); LYMPHOCYTES % 8.1 % (18.0-39.1); MEAN CORPUSCULAR HEMOGLOBIN 32.7 pg (28-32); MEAN CORPUSCULAR HGB CONC 32.1 g/dL (31-35); MEAN CORPUSCULAR VOLUME 101.9 fL (81-99); MONOCYTES % 9.5 % (4.4-11.3); NEUTROPHILS # (AUTO) 7.3 (2.1-6.9); NEUTROPHILS % 69.6 % (38.7-80.0); PLATELET COUNT 229 x10e3/uL (140-360); RED BLOOD COUNT 2.57 x10e6/uL (4.3-5.7); RED CELL DISTRIBUTION WIDTH 14.7 % (11.7-14.4)
[2021-04-16 06:39] LABS: ALBUMIN 2.3 g/dL (3.5-5.0); ALBUMIN/GLOBULIN RATIO 0.8 (0.8-2.0); ANION GAP 12.3 mmol/L (8-16); CALCIUM 8.5 mg/dL (8.4-10.2); CREATININE, SERUM 0.89 mg/dL (0.72-1.25); POTASSIUM 3.3 mmol/L (3.5-5.1)
[2021-04-16] MEDS: NAMENDA XR 28 MG PO SCH (09:00)
[2021-04-16] MEDS ORDERED: MEMANTINE 10 MG TAB PO SCH (09:00)
[2021-04-16] MEDS: MULTIVITAMINS/MINERALS TAB PO SCH (09:29)
[2021-04-16] MEDS: OYST-CAL-D 500MG TABLET PO SCH ×3 (09:29→21:00)
[2021-04-16] MEDS: FENOFIBRATE 145 MG TAB PO SCH (09:29)
[2021-04-16] MEDS: AMLODIPINE BESYLATE 5 MG TAB PO SCH (09:29)
[2021-04-16] MEDS: SITAGLIPTIN 100 MG TAB PO SCH (09:29)
[2021-04-16] MEDS: TAMSULOSIN HCL 0.4 MG CAP PO SCH (09:30)
[2021-04-16] MEDS: BALSAM PERU/CASTOR OIL 60 GM OINT...G. TP SCH ×2 (09:30)
[2021-04-16 12:00] LABS: BASOPHILS # (AUTO) 0.1 (0.0-0.1); BASOPHILS % 0.6 % (0.0-1.0); EOSINOPHILS # (AUTO) 0.2 (0.0-0.4); EOSINOPHILS % 1.7 % (0.0-6.0); HEMATOCRIT 26.7 % (38.2-49.6); HEMOGLOBIN 8.2 g/dL (14.0-18.0); LYMPHOCYTES # (AUTO) 0.8 (1.0-3.2); LYMPHOCYTES % 7.5 % (18.0-39.1); MEAN CORPUSCULAR HEMOGLOBIN 31.8 pg (28-32); MEAN CORPUSCULAR HGB CONC 30.7 g/dL (31-35); MEAN CORPUSCULAR VOLUME 103.5 fL (81-99); MONOCYTES # (AUTO) 1.1 (0.2-0.8); MONOCYTES % 10.2 % (4.4-11.3); NEUTROPHILS # (AUTO) 7.6 (2.1-6.9); NEUTROPHILS % 70.4 % (38.7-80.0); PLATELET COUNT 219 x10e3/uL (140-360); RED BLOOD COUNT 2.58 x10e6/uL (4.3-5.7); RED CELL DISTRIBUTION WIDTH 14.7 % (11.7-14.4)
[2021-04-16] MEDS: TRAMADOL HCL 50 MG TAB PO PRN (12:00)
[2021-04-16] MEDS: MEMANTINE 10 MG TAB PO SCH ×2 (12:01→17:25)
[2021-04-16 12:54] LABS: LYMPHOCYTES % (MANUAL) 6 % (19-48); METAMYELOCYTES % (MANUAL) 1 % (0-0); MONOCYTES % (MANUAL) 5 % (3.4-9.0); MYELOCYTES % (MANUAL) 3 % (0-0); NEUTROPHILS % (MANUAL) 84 % (40-74); PLATELET ESTIMATE ADEQUATE; PROMYELOCYTES % (MANUAL) 1 % (0-0)
[2021-04-16 12:55] LABS: PLATELET MORPHOLOGY COMMENT NORMAL; RBC MORPHOLOGY COMMENT NORMAL
[2021-04-16] MEDS: IRON SUCROSE 100 MG in SODIUM CHLORIDE 0.9% 100 ML 100 ML IV SCH (17:25)
[2021-04-16 17:41] LABS: BASOPHILS # (AUTO) 0.1 (0.0-0.1); BASOPHILS % 0.8 % (0.0-1.0); EOSINOPHILS # (AUTO) 0.3 (0.0-0.4); EOSINOPHILS % 1.8 % (0.0-6.0); HEMATOCRIT 31.2 % (38.2-49.6); HEMOGLOBIN 9.4 g/dL (14.0-18.0); LYMPHOCYTES # (AUTO) 1.1 (1.0-3.2); LYMPHOCYTES % 6.1 % (18.0-39.1); MEAN CORPUSCULAR HGB CONC 30.1 g/dL (31-35); MEAN CORPUSCULAR VOLUME 106.1 fL (81-99); MONOCYTES # (AUTO) 1.6 (0.2-0.8); MONOCYTES % 9.1 % (4.4-11.3); NEUTROPHILS # (AUTO) 12.5 (2.1-6.9); NEUTROPHILS % 70.8 % (38.7-80.0); PLATELET COUNT 288 x10e3/uL (140-360); RED BLOOD COUNT 2.94 x10e6/uL (4.3-5.7)
[2021-04-16 20:54] LABS: BAND NEUTROPHILS % (MANUAL) 9 %; EOSINOPHILS % (MANUAL) 1 % (0-7); LYMPHOCYTES % (MANUAL) 11 % (19-48); METAMYELOCYTES % (MANUAL) 3 % (0-0); MONOCYTES % (MANUAL) 8 % (3.4-9.0); NEUTROPHILS % (MANUAL) 68 % (40-74); PLATELET ESTIMATE ADEQUATE; PLATELET MORPHOLOGY COMMENT NORMAL
[2021-04-16] MEDS: DONEPEZIL HCL 5 MG TAB PO SCH (21:00)
[2021-04-16] MEDS ORDERED: CLOPIDOGREL BISULFATE 75 MG TAB PO ONE (22:15)
[2021-04-17] VITALS: BP 142/85
[2021-04-17] MEDS: SODIUM CHLORIDE 0.9% 1000ML 1,000 ML IV SCH ×3 (02:00→17:29)
[2021-04-17] MEDS: Pantoprazole IV 40 MG in SODIUM CHLORIDE 0.9% 50ML 50 ML IV SCH ×5 (02:45→22:45)
[2021-04-17 04:00] VITALS: BP 145/78
[2021-04-17] MEDS: LEVOTHYROXINE SODIUM 50 MCG TAB PO SCH (06:00)
[2021-04-17 07:11] LABS: BASOPHILS # (AUTO) 0.1 (0.0-0.1); BASOPHILS % 0.5 % (0.0-1.0); EOSINOPHILS # (AUTO) 0.2 (0.0-0.4); EOSINOPHILS % 2.1 % (0.0-6.0); LYMPHOCYTES # (AUTO) 0.8 (1.0-3.2); LYMPHOCYTES % 7.5 % (18.0-39.1); MEAN CORPUSCULAR HEMOGLOBIN 32.1 pg (28-32); MEAN CORPUSCULAR HGB CONC 30.8 g/dL (31-35); MEAN CORPUSCULAR VOLUME 104.4 fL (81-99); MONOCYTES # (AUTO) 1.1 (0.2-0.8); MONOCYTES % 9.5 % (4.4-11.3); NEUTROPHILS # (AUTO) 7.8 (2.1-6.9); NEUTROPHILS % 70.9 % (38.7-80.0); PLATELET COUNT 243 x10e3/uL (140-360); RED BLOOD COUNT 2.49 x10e6/uL (4.3-5.7); RED CELL DISTRIBUTION WIDTH 14.7 % (11.7-14.4)
[2021-04-17 08:20] VITALS: BP 157/97
[2021-04-17] MEDS: AMLODIPINE BESYLATE 5 MG TAB PO SCH (08:35)
[2021-04-17] MEDS: SITAGLIPTIN 100 MG TAB PO SCH (08:35)
[2021-04-17] MEDS: FENOFIBRATE 145 MG TAB PO SCH (08:35)
[2021-04-17] MEDS: MULTIVITAMINS/MINERALS TAB PO SCH (08:35)
[2021-04-17] MEDS: MEMANTINE 10 MG TAB PO SCH ×2 (08:35→16:09)
[2021-04-17] MEDS: CLOPIDOGREL BISULFATE 75 MG TAB PO SCH (08:35)
[2021-04-17] MEDS: OYST-CAL-D 500MG TABLET PO SCH ×3 (08:35→21:05)
[2021-04-17] MEDS: TAMSULOSIN HCL 0.4 MG CAP PO SCH (08:36)
[2021-04-17] MEDS: ASPIRIN 81 MG CHEW TAB PO SCH (08:36)
[2021-04-17] MEDS: NAMENDA XR 28 MG PO SCH (08:36)
[2021-04-17] MEDS ORDERED: POTASSIUM CHLORIDE 20 MEQ TAB CR PO NR (11:00)
[2021-04-17] MEDS: TRAMADOL HCL 50 MG TAB PO PRN (12:29)
[2021-04-17 13:03] LABS: BASOPHILS % 0.4 % (0.0-1.0); EOSINOPHILS # (AUTO) 0.2 (0.0-0.4); EOSINOPHILS % 1.6 % (0.0-6.0); HEMATOCRIT 26.1 % (38.2-49.6); HEMOGLOBIN 8.4 g/dL (14.0-18.0); LYMPHOCYTES # (AUTO) 0.7 (1.0-3.2); LYMPHOCYTES % 7.1 % (18.0-39.1); MEAN CORPUSCULAR HEMOGLOBIN 32.7 pg (28-32); MEAN CORPUSCULAR HGB CONC 32.2 g/dL (31-35); MEAN CORPUSCULAR VOLUME 101.6 fL (81-99); NEUTROPHILS # (AUTO) 7.5 (2.1-6.9); PLATELET COUNT 221 x10e3/uL (140-360); RED BLOOD COUNT 2.57 x10e6/uL (4.3-5.7); RED CELL DISTRIBUTION WIDTH 14.7 % (11.7-14.4)
[2021-04-17] MEDS: BALSAM PERU/CASTOR OIL 60 GM OINT...G. TP SCH ×2 (13:57)
[2021-04-17] MEDS: IRON SUCROSE 100 MG in SODIUM CHLORIDE 0.9% 100 ML 100 ML IV SCH (16:09)
[2021-04-17 18:01] LABS: BASOPHILS # (AUTO) 0.1 (0.0-0.1); BASOPHILS % 0.7 % (0.0-1.0); EOSINOPHILS # (AUTO) 0.2 (0.0-0.4); EOSINOPHILS % 1.4 % (0.0-6.0); HEMATOCRIT 26.6 % (38.2-49.6); HEMOGLOBIN 8.3 g/dL (14.0-18.0); LYMPHOCYTES # (AUTO) 0.9 (1.0-3.2); LYMPHOCYTES % 7.9 % (18.0-39.1); MEAN CORPUSCULAR HEMOGLOBIN 32.4 pg (28-32); MEAN CORPUSCULAR HGB CONC 31.2 g/dL (31-35); MEAN CORPUSCULAR VOLUME 103.9 fL (81-99); MONOCYTES # (AUTO) 1.2 (0.2-0.8); MONOCYTES % 11.2 % (4.4-11.3); NEUTROPHILS # (AUTO) 7.9 (2.1-6.9); NEUTROPHILS % 71.3 % (38.7-80.0); PLATELET COUNT 237 x10e3/uL (140-360); RED BLOOD COUNT 2.56 x10e6/uL (4.3-5.7); RED CELL DISTRIBUTION WIDTH 14.7 % (11.7-14.4)
[2021-04-17 19:43] VITALS: BP 157/97
[2021-04-17 20:00] VITALS: BP 146/93
[2021-04-17] MEDS: DONEPEZIL HCL 5 MG TAB PO SCH (21:05)
[2021-04-18] VITALS: BP 143/90
[2021-04-18 04:00] VITALS: BP 137/94
[2021-04-18 05:12] LABS: BASOPHILS % 0.4 % (0.0-1.0); EOSINOPHILS # (AUTO) 0.1 (0.0-0.4); EOSINOPHILS % 1.4 % (0.0-6.0); HEMATOCRIT 25.6 % (38.2-49.6); HEMOGLOBIN 8.2 g/dL (14.0-18.0); LYMPHOCYTES # (AUTO) 0.7 (1.0-3.2); LYMPHOCYTES % 7.2 % (18.0-39.1); MEAN CORPUSCULAR HEMOGLOBIN 32.4 pg (28-32); MEAN CORPUSCULAR VOLUME 101.2 fL (81-99); MONOCYTES # (AUTO) 1.1 (0.2-0.8); MONOCYTES % 11.2 % (4.4-11.3); NEUTROPHILS # (AUTO) 7.2 (2.1-6.9); NEUTROPHILS % 72.1 % (38.7-80.0); PLATELET COUNT 230 x10e3/uL (140-360); RED BLOOD COUNT 2.53 x10e6/uL (4.3-5.7); RED CELL DISTRIBUTION WIDTH 14.8 % (11.7-14.4)
[2021-04-18] MEDS: Pantoprazole IV 40 MG in SODIUM CHLORIDE 0.9% 50ML 50 ML IV SCH ×2 (05:32→08:36)
[2021-04-18] MEDS: SODIUM CHLORIDE 0.9% 1000ML 1,000 ML IV SCH ×2 (05:32→08:36)
[2021-04-18] MEDS: LEVOTHYROXINE SODIUM 50 MCG TAB PO SCH (06:00)
[2021-04-18] MEDS: TRAMADOL HCL 50 MG TAB PO PRN ×2 (06:01→11:50)
[2021-04-18 07:41] LABS: ANION GAP 12.5 mmol/L (8-16); CALCIUM 8.1 mg/dL (8.4-10.2); CREATININE, SERUM 0.76 mg/dL (0.72-1.25); POTASSIUM 3.5 mmol/L (3.5-5.1)
[2021-04-18 07:52] VITALS: BP 147/96
[2021-04-18 08:15] VITALS: BP 147/96
[2021-04-18] MEDS: SITAGLIPTIN 100 MG TAB PO SCH (08:34)
[2021-04-18] MEDS: MEMANTINE 10 MG TAB PO SCH ×2 (08:34→16:13)
[2021-04-18] MEDS: TAMSULOSIN HCL 0.4 MG CAP PO SCH (08:34)
[2021-04-18] MEDS: CLOPIDOGREL BISULFATE 75 MG TAB PO SCH (08:35)
[2021-04-18] MEDS: FENOFIBRATE 145 MG TAB PO SCH (08:35)
[2021-04-18] MEDS: NAMENDA XR 28 MG PO SCH (08:35)
[2021-04-18] MEDS: OYST-CAL-D 500MG TABLET PO SCH ×2 (08:35→16:13)
[2021-04-18] MEDS: MULTIVITAMINS/MINERALS TAB PO SCH (08:35)
[2021-04-18] MEDS: AMLODIPINE BESYLATE 5 MG TAB PO SCH (08:35)
[2021-04-18] MEDS: BALSAM PERU/CASTOR OIL 60 GM OINT...G. TP SCH ×2 (09:22)
[2021-04-18] MEDS: ASPIRIN 81 MG CHEW TAB PO SCH (11:00)
[2021-04-18 11:55] VITALS: BP 120/64
[2021-04-18 12:28] LABS: BASOPHILS # (AUTO) 0.1 (0.0-0.1); BASOPHILS % 0.6 % (0.0-1.0); EOSINOPHILS # (AUTO) 0.2 (0.0-0.4); EOSINOPHILS % 1.5 % (0.0-6.0); HEMATOCRIT 26.8 % (38.2-49.6); HEMOGLOBIN 8.3 g/dL (14.0-18.0); LYMPHOCYTES # (AUTO) 0.8 (1.0-3.2); LYMPHOCYTES % 7.6 % (18.0-39.1); MEAN CORPUSCULAR HEMOGLOBIN 31.8 pg (28-32); MEAN CORPUSCULAR VOLUME 102.7 fL (81-99); MONOCYTES # (AUTO) 1.2 (0.2-0.8); MONOCYTES % 11.1 % (4.4-11.3); NEUTROPHILS # (AUTO) 7.9 (2.1-6.9); NEUTROPHILS % 72.2 % (38.7-80.0); PLATELET COUNT 226 x10e3/uL (140-360); RED BLOOD COUNT 2.61 x10e6/uL (4.3-5.7)
[2021-04-18] MEDS ORDERED: PANTOPRAZOLE SO40 MG PO (14:29)
[2021-04-18] MEDS ORDERED: PLAVIX75 MG PO (14:29)
[2021-04-18] MEDS ORDERED: VENELEX OINTMEN60 GM TP (14:29)
[2021-04-18 16:09] VITALS: BP 114/63
[2021-04-18] MEDS ORDERED: FERROUS SULFATE 325 MG TAB PO SCH (17:00)
== END 2021-04-18 17:29 | DRG 368 ==
LOC: ER 01:03 → ERHOLD 02:33 → MED/SURG2 07:44
PROVIDERS: ADMIT Internal Medicine; ATTEND Internal Medicine
PROC: 0DJ08ZZ Inspection of Upper Intestinal Tract, Via Natural or Artificial Opening Endoscopic (ICD-10-PCS; principal; 2021-04-15 16:08)
DX: K20.91 Esophagitis, unspecified with bleeding (principal); K29.71 Gastritis, unspecified, with bleeding; I74.3 Embolism and thrombosis of arteries of the lower extremities; I72.4 Aneurysm of artery of lower extremity; I48.91 Unspecified atrial fibrillation; K29.70 Gastritis, unspecified, without bleeding; K44.9 Diaphragmatic hernia without obstruction or gangrene; K22.70 Barrett's esophagus without dysplasia; E11.9 Type 2 diabetes mellitus without complications; I10 Essential (primary) hypertension; F03.90 Unspecified dementia, unspecified severity, without behavioral disturbance, psychotic disturbance, mood disturbance, and anxiety; H91.93 Unspecified hearing loss, bilateral; K21.9 Gastro-esophageal reflux disease without esophagitis; M54.9 Dorsalgia, unspecified; Z20.822 Contact with and (suspected) exposure to COVID-19; L97.511 Non-pressure chronic ulcer of other part of right foot limited to breakdown of skin
CPT/HCPCS: 36415; 43239; 71045; 80048; 80053; 82150; 82550; 82553; 82607; 82728; 82948; 83540; 83690; 84132; 84466; 84484; 85025; 85610; 85730; 86850; 86900; 93005; 94799; 97139; 99251; 99284; J1756; J2060; J2405; J7030; J7050; U0002

== ENCOUNTER 2021-05-20 07:11 | Inpatient (IN) | payer MEDICARE ==
[~2021-05-20] VITALS: Ht 182.9 cm; Wt 88.0 kg
[~2021-05-20 07:11] MED LIST changes: +PANTOPRAZOLE SO40 MG PO; +PLAVIX75 MG PO; +VENELEX OINTMEN60 GM TP
[2021-05-20] MEDS ORDERED: ONDANSETRON HCL INJ 2MG/ML 2ML 2 MG/ML VIAL IV ONE (07:35)
[2021-05-20] MEDS ORDERED: Morphine 2mg Syringe 2 MG/ML SYR IV ONE (07:35)
[2021-05-20 07:55] LABS: BASOPHILS # (AUTO) 0.1 (0.0-0.1); BASOPHILS % 0.8 % (0.0-1.0); EOSINOPHILS # (AUTO) 0.2 (0.0-0.4); EOSINOPHILS % 3.1 % (0.0-6.0); HEMATOCRIT 35.4 % (38.2-49.6); HEMOGLOBIN 11.2 g/dL (14.0-18.0); LYMPHOCYTES # (AUTO) 0.9 (1.0-3.2); LYMPHOCYTES % 15.2 % (18.0-39.1); MEAN CORPUSCULAR HEMOGLOBIN 31.9 pg (28-32); MEAN CORPUSCULAR HGB CONC 31.6 g/dL (31-35); MEAN CORPUSCULAR VOLUME 100.9 fL (81-99); MONOCYTES % 15.6 % (4.4-11.3); NEUTROPHILS % 64.5 % (38.7-80.0); PLATELET COUNT 118 x10e3/uL (140-360); RED BLOOD COUNT 3.51 x10e6/uL (4.3-5.7); RED CELL DISTRIBUTION WIDTH 15.4 % (11.7-14.4)
[2021-05-20 08:08] LABS: INR 1.12; PARTIAL THROMBOPLASTIN TIME 31.5 seconds (23.8-35.5); PROTHROMBIN TIME 15.3 seconds (11.9-14.5)
[2021-05-20 08:13] LABS: ALBUMIN 3.2 g/dL (3.5-5.0); ALBUMIN/GLOBULIN RATIO 1.1 (0.8-2.0); ANION GAP 14.1 mmol/L (8-16); CALCIUM 8.7 mg/dL (8.4-10.2); CREATININE, SERUM 0.92 mg/dL (0.72-1.25); MAGNESIUM 1.5 MG/DL (1.3-2.1); POTASSIUM 3.1 mmol/L (3.5-5.1)
[2021-05-20 08:19] LABS: CREATINE KINASE MB 8.8 ng/mL (0-5.0)
[2021-05-20] MEDS: PIPERACILLIN/TAZOBACTAM 3.375 GM in SODIUM CHLORIDE 0.9% 50ML 50 ML IV SCH ×3 (08:19→17:40)
[2021-05-20] MEDS ORDERED: FOSINOPRIL SODI10 MG PO (08:26)
[2021-05-20] MEDS ORDERED: FLOMAX0.4 MG PO (08:26)
[2021-05-20] MEDS ORDERED: POTASSIUM CHLORIDE 20 MEQ TAB CR PO ONE (08:35)
[2021-05-20] MEDS ORDERED: ONDANSETRON HCL INJ 2MG/ML 2ML 2 MG/ML VIAL IV PRN (08:45)
[2021-05-20] MEDS ORDERED: KCL 20MEQ/.9 SOD CHL 1,000 ML IV ONE (08:45)
[2021-05-20] MEDS ORDERED: DEXTROSE 50% SYRINGE 50 ML IV PRN (08:45)
[2021-05-20] MEDS: INSULIN LISPRO 100 UNIT/1 ML 3ML VIAL SQ SCH ×3 (11:30→20:24)
[2021-05-20] MEDS: Morphine 2mg Syringe 2 MG/ML SYR IV PRN ×2 (12:38→16:36)
[2021-05-20 15:47] LABS: CREATINE KINASE MB 7.7 ng/mL (0-5.0)
[2021-05-20] MEDS ORDERED: D5.45%NS/KCL 20MEQ 1,000 ML IV SCH (17:15)
[2021-05-20] MEDS ORDERED: HYDRALAZINE HCL 20 MG/ML VIAL IV PRN (18:00)
[2021-05-20] MEDS ORDERED: ACETAMINOPHEN 325 MG TAB PO PRN (18:00)
[2021-05-20] MEDS ORDERED: MAGNESIUM SULFATE 2GM/50ML 50 ML IV ONE (18:00)
[2021-05-20] MEDS ORDERED: POLYETHYLENE GLYCOL 3350 17 GM PACK PO PRN (18:00)
[2021-05-20] MEDS ORDERED: NALOXONE HCL INJ 0.4 MG/ML AMP IV PRN (19:00)
[2021-05-20] MEDS: DONEPEZIL HCL 5 MG TAB PO SCH (20:24)
[2021-05-20 23:31] LABS: CREATINE KINASE MB 8.5 ng/mL (0-5.0)
[2021-05-21] MEDS: PIPERACILLIN/TAZOBACTAM 3.375 GM in SODIUM CHLORIDE 0.9% 50ML 50 ML IV SCH ×5 (01:41→23:58)
[2021-05-21] MEDS: LEVOTHYROXINE SODIUM 50 MCG TAB PO SCH (06:52)
[2021-05-21 07:44] LABS: BASOPHILS % 0.4 % (0.0-1.0); EOSINOPHILS # (AUTO) 0.2 (0.0-0.4); EOSINOPHILS % 1.6 % (0.0-6.0); HEMATOCRIT 36.7 % (38.2-49.6); HEMOGLOBIN 11.6 g/dL (14.0-18.0); LYMPHOCYTES # (AUTO) 1.1 (1.0-3.2); LYMPHOCYTES % 11.7 % (18.0-39.1); MEAN CORPUSCULAR HEMOGLOBIN 31.5 pg (28-32); MEAN CORPUSCULAR HGB CONC 31.6 g/dL (31-35); MEAN CORPUSCULAR VOLUME 99.7 fL (81-99); MONOCYTES # (AUTO) 1.6 (0.2-0.8); MONOCYTES % 16.7 % (4.4-11.3); NEUTROPHILS # (AUTO) 6.4 (2.1-6.9); NEUTROPHILS % 68.1 % (38.7-80.0); PLATELET COUNT 129 x10e3/uL (140-360); RED BLOOD COUNT 3.68 x10e6/uL (4.3-5.7); RED CELL DISTRIBUTION WIDTH 15.3 % (11.7-14.4)
[2021-05-21 08:14] LABS: MAGNESIUM 1.8 MG/DL (1.3-2.1); PHOSPHORUS 2.5 MG/DL (2.3-4.7)
[2021-05-21 08:36] LABS: THYROID STIMULATING HORMONE 1.891 uIU/mL (0.350-4.940)
[2021-05-21 08:56] LABS: ALBUMIN/GLOBULIN RATIO 0.9 (0.8-2.0); ANION GAP 11.6 mmol/L (8-16); CALCIUM 8.8 mg/dL (8.4-10.2); CREATININE, SERUM 0.81 mg/dL (0.72-1.25); POTASSIUM 3.6 mmol/L (3.5-5.1)
[2021-05-21] MEDS ORDERED: FAMOTIDINE 20 MG/2 ML VIAL IV SCH (09:00)
[2021-05-21] MEDS: DOCUSATE SODIUM 100 MG CAP PO SCH ×2 (09:00→17:29)
[2021-05-21] MEDS: OYST-CAL-D 500MG TABLET PO SCH (09:22)
[2021-05-21] MEDS: HYDROXYZINE HCL 10 MG TAB PO SCH (09:22)
[2021-05-21] MEDS: MULTIVITAMINS/MINERALS TAB PO SCH (09:22)
[2021-05-21] MEDS: AMLODIPINE BESYLATE 5 MG TAB PO SCH (09:23)
[2021-05-21] MEDS: OXYBUTYNIN CHLORIDE XL 5 MG TAB PO SCH (09:23)
[2021-05-21] MEDS: FUROSEMIDE 20 MG TAB PO SCH (09:23)
[2021-05-21] MEDS: TAMSULOSIN HCL 0.4 MG CAP PO SCH (09:23)
[2021-05-21] MEDS: ESCITALOPRAM OXALATE 10 MG TAB PO SCH (09:23)
[2021-05-21] MEDS: FENOFIBRATE 145 MG TAB PO SCH (09:30)
[2021-05-21] MEDS: INSULIN LISPRO 100 UNIT/1 ML 3ML VIAL SQ SCH ×4 (09:31→20:25)
[2021-05-21 11:22] VITALS: BP 145/68
[2021-05-21 11:23] VITALS: BP 145/68
[2021-05-21] MEDS ORDERED: MEMANTINE HCL E28 MG PO (11:32)
[2021-05-21] MEDS ORDERED: DOXEPIN HCL25 MG PO (11:37)
[2021-05-21] MEDS ORDERED: NEXIUM40 MG PO (11:40)
[2021-05-21] MEDS ORDERED: FAMOTIDINE20 MG PO (11:41)
[2021-05-21] MEDS ORDERED: ATORVASTATIN CA20 MG PO (11:48)
[2021-05-21] MEDS ORDERED: ACTOS15 MG PO (11:52)
[2021-05-21 12:00] VITALS: BP 144/73
[2021-05-21] MEDS ORDERED: FLOMAX0.4 MG PO (12:54)
[2021-05-21] MEDS ORDERED: K-DUR10 MEQ PO (13:42)
[2021-05-21] MEDS ORDERED: ACETAMINOPHEN 325 MG TAB PO PRN (13:45)
[2021-05-21] MEDS ORDERED: TYLENOL#3 (13:47)
[2021-05-21] MEDS ORDERED: VITAMIN E400 UNI1 PO (13:51)
[2021-05-21] MEDS ORDERED: VITAMIN C500 MG PO (13:52)
[2021-05-21 16:00] VITALS: BP 134/66
[2021-05-21 19:54] VITALS: BP 125/64
[2021-05-21] MEDS: DONEPEZIL HCL 5 MG TAB PO SCH (20:24)
[2021-05-21 21:00] VITALS: BP 125/64
[2021-05-22] VITALS (7 sets, daily range): BP systolic 129–152; BP diastolic 73–101
[2021-05-22] MEDS ORDERED: SODIUM CHLORIDE 0.9% 250ML 250 ML ONE (00:01)
[2021-05-22] MEDS: PIPERACILLIN/TAZOBACTAM 3.375 GM in SODIUM CHLORIDE 0.9% 50ML 50 ML IV SCH ×4 (06:35→23:48)
[2021-05-22] MEDS: LEVOTHYROXINE SODIUM 50 MCG TAB PO SCH (06:35)
[2021-05-22] MEDS: INSULIN LISPRO 100 UNIT/1 ML 3ML VIAL SQ SCH ×4 (07:30→21:31)
[2021-05-22] MEDS: DOCUSATE SODIUM 100 MG CAP PO SCH ×2 (09:00→17:00)
[2021-05-22] MEDS: FENOFIBRATE 145 MG TAB PO SCH (09:00)
[2021-05-22] MEDS: ESCITALOPRAM OXALATE 10 MG TAB PO SCH (09:00)
[2021-05-22] MEDS: AMLODIPINE BESYLATE 5 MG TAB PO SCH (09:00)
[2021-05-22] MEDS: OXYBUTYNIN CHLORIDE XL 5 MG TAB PO SCH (09:00)
[2021-05-22] MEDS: OYST-CAL-D 500MG TABLET PO SCH (09:00)
[2021-05-22] MEDS: HYDROXYZINE HCL 10 MG TAB PO SCH (09:00)
[2021-05-22] MEDS: ZINC SULFATE 220 MG CAP PO SCH ×2 (09:00→17:00)
[2021-05-22] MEDS: SITAGLIPTIN 100 MG TAB PO SCH (09:00)
[2021-05-22] MEDS: MULTIVITAMINS/MINERALS TAB PO SCH ×2 (09:00)
[2021-05-22] MEDS: MAGNESIUM OXIDE 400 MG TAB PO SCH ×2 (09:00→17:00)
[2021-05-22] MEDS: TAMSULOSIN HCL 0.4 MG CAP PO SCH (09:00)
[2021-05-22] MEDS: ASCORBIC ACID 500 MG TAB PO SCH ×2 (09:00→17:00)
[2021-05-22] MEDS: MEMANTINE 10 MG TAB PO SCH ×2 (09:56→17:00)
[2021-05-22] MEDS: DONEPEZIL HCL 5 MG TAB PO SCH (21:30)
[2021-05-23] VITALS: BP 140/82
[2021-05-23 04:00] VITALS: BP 147/93
[2021-05-23] MEDS: LEVOTHYROXINE SODIUM 50 MCG TAB PO SCH (05:59)
[2021-05-23] MEDS: PIPERACILLIN/TAZOBACTAM 3.375 GM in SODIUM CHLORIDE 0.9% 50ML 50 ML IV SCH ×3 (05:59→16:37)
[2021-05-23 06:14] LABS: BASOPHILS % 0.5 % (0.0-1.0); EOSINOPHILS # (AUTO) 0.1 (0.0-0.4); EOSINOPHILS % 0.8 % (0.0-6.0); HEMATOCRIT 35.2 % (38.2-49.6); HEMOGLOBIN 11.1 g/dL (14.0-18.0); LYMPHOCYTES # (AUTO) 1.2 (1.0-3.2); LYMPHOCYTES % 16.1 % (18.0-39.1); MEAN CORPUSCULAR HEMOGLOBIN 31.8 pg (28-32); MEAN CORPUSCULAR HGB CONC 31.5 g/dL (31-35); MEAN CORPUSCULAR VOLUME 100.9 fL (81-99); MONOCYTES # (AUTO) 1.2 (0.2-0.8); MONOCYTES % 16.2 % (4.4-11.3); NEUTROPHILS # (AUTO) 4.9 (2.1-6.9); NEUTROPHILS % 65.6 % (38.7-80.0); PLATELET COUNT 102 x10e3/uL (140-360); RED BLOOD COUNT 3.49 x10e6/uL (4.3-5.7); RED CELL DISTRIBUTION WIDTH 15.2 % (11.7-14.4)
[2021-05-23 06:56] LABS: ALBUMIN 2.6 g/dL (3.5-5.0); ALBUMIN/GLOBULIN RATIO 0.9 (0.8-2.0); ANION GAP 13.3 mmol/L (8-16); CALCIUM 8.7 mg/dL (8.4-10.2); CREATININE, SERUM 0.82 mg/dL (0.72-1.25); MAGNESIUM 1.6 MG/DL (1.3-2.1); POTASSIUM 3.3 mmol/L (3.5-5.1)
[2021-05-23] MEDS: INSULIN LISPRO 100 UNIT/1 ML 3ML VIAL SQ SCH ×4 (07:30→21:00)
[2021-05-23 08:00] VITALS: BP 134/87
[2021-05-23] MEDS ORDERED: ONDANSETRON HCL 4 MG ORAL DISINTEGRATING TAB PO PRN (08:15)
[2021-05-23] MEDS: OYST-CAL-D 500MG TABLET PO SCH (09:00)
[2021-05-23] MEDS: ASCORBIC ACID 500 MG TAB PO SCH ×2 (09:00→16:37)
[2021-05-23] MEDS: DOCUSATE SODIUM 100 MG CAP PO SCH ×2 (09:00→16:37)
[2021-05-23] MEDS: TAMSULOSIN HCL 0.4 MG CAP PO SCH (09:00)
[2021-05-23] MEDS: FENOFIBRATE 145 MG TAB PO SCH (09:00)
[2021-05-23] MEDS: ZINC SULFATE 220 MG CAP PO SCH ×2 (09:00→16:37)
[2021-05-23] MEDS: ESCITALOPRAM OXALATE 10 MG TAB PO SCH (09:00)
[2021-05-23] MEDS: MEMANTINE 10 MG TAB PO SCH ×2 (09:00→16:37)
[2021-05-23] MEDS: AMLODIPINE BESYLATE 5 MG TAB PO SCH (09:00)
[2021-05-23] MEDS: SITAGLIPTIN 100 MG TAB PO SCH (09:00)
[2021-05-23] MEDS: FUROSEMIDE 20 MG TAB PO SCH (09:00)
[2021-05-23] MEDS: MAGNESIUM OXIDE 400 MG TAB PO SCH ×2 (09:00→16:37)
[2021-05-23] MEDS: OXYBUTYNIN CHLORIDE XL 5 MG TAB PO SCH (09:00)
[2021-05-23] MEDS: HYDROXYZINE HCL 10 MG TAB PO SCH (09:00)
[2021-05-23] MEDS: MULTIVITAMINS/MINERALS TAB PO SCH ×2 (09:00)
[2021-05-23] MEDS ORDERED: ACETAMINOPHEN 1000 MG/100 ML 100 ML IV ONE (11:47)
[2021-05-23] MEDS ORDERED: ACETAMINOPHEN 1000 MG/100 ML IV PRN (12:45)
[2021-05-23] MEDS ORDERED: ONDANSETRON HCL INJ 2MG/ML 2ML 2 MG/ML VIAL ONE (13:22)
[2021-05-23] MEDS ORDERED: PROPOFOL IV EMULSION 10 MG/ML 20 ML VIAL ONE (13:22)
[2021-05-23] MEDS ORDERED: EPHEDRINE SULFATE INJ 50 MG/ML VIAL ONE (13:22)
[2021-05-23] MEDS ORDERED: LIDOCAINE HCL 2% LOCAL INJ 5 ML SDV VIAL INJ ONE (13:22)
[2021-05-23] MEDS ORDERED: POVIDONE IODINE 0.05% 0.05 % ML PO ONE (13:22)
[2021-05-23] MEDS ORDERED: SEVOFLURANE INHAL SOLN 250 ML PEN BTL ONE (13:22)
[2021-05-23 13:25] VITALS: BP 124/69
[2021-05-23] MEDS ORDERED: FENTANYL CITRATE/PF 100MCG/2 ML INJ ONE (13:25)
[2021-05-23] MEDS: Morphine 2mg Syringe 2 MG/ML SYR IV PRN ×2 (14:27→21:21)
[2021-05-23] MEDS: SODIUM CHLORIDE 0.9% 1000ML 1,000 ML IV SCH (14:27)
[2021-05-23 16:00] VITALS: BP 115/70
[2021-05-23] MEDS ORDERED: POTASSIUM CHLORIDE 20 MEQ TAB CR PO ONE ×2 (17:15→21:45)
[2021-05-23 20:00] VITALS: BP 142/90
[2021-05-23] MEDS: DONEPEZIL HCL 5 MG TAB PO SCH (21:23)
[2021-05-24] VITALS (9 sets, daily range): BP systolic 131–160; BP diastolic 68–90
[2021-05-24] MEDS: PIPERACILLIN/TAZOBACTAM 3.375 GM in SODIUM CHLORIDE 0.9% 50ML 50 ML IV SCH ×5 (00:47→23:51)
[2021-05-24] MEDS: SODIUM CHLORIDE 0.9% 1000ML 1,000 ML IV SCH ×3 (00:52→16:42)
[2021-05-24] MEDS: Morphine 2mg Syringe 2 MG/ML SYR IV PRN ×5 (00:52→21:52)
[2021-05-24] MEDS: ONDANSETRON HCL INJ 2MG/ML 2ML 2 MG/ML VIAL IV PRN ×2 (01:55→07:25)
[2021-05-24 05:16] LABS: BASOPHILS % 0.3 % (0.0-1.0); EOSINOPHILS # (AUTO) 0.1 (0.0-0.4); EOSINOPHILS % 0.5 % (0.0-6.0); HEMATOCRIT 33.4 % (38.2-49.6); HEMOGLOBIN 10.4 g/dL (14.0-18.0); LYMPHOCYTES # (AUTO) 0.6 (1.0-3.2); LYMPHOCYTES % 5.5 % (18.0-39.1); MEAN CORPUSCULAR HEMOGLOBIN 31.2 pg (28-32); MEAN CORPUSCULAR HGB CONC 31.1 g/dL (31-35); MEAN CORPUSCULAR VOLUME 100.3 fL (81-99); MONOCYTES # (AUTO) 1.3 (0.2-0.8); MONOCYTES % 13.1 % (4.4-11.3); NEUTROPHILS # (AUTO) 7.9 (2.1-6.9); NEUTROPHILS % 79.7 % (38.7-80.0); PLATELET COUNT 120 x10e3/uL (140-360); RED BLOOD COUNT 3.33 x10e6/uL (4.3-5.7); RED CELL DISTRIBUTION WIDTH 14.8 % (11.7-14.4)
[2021-05-24 05:39] LABS: ANION GAP 12.8 mmol/L (8-16); CALCIUM 8.6 mg/dL (8.4-10.2); CREATININE, SERUM 0.81 mg/dL (0.72-1.25)
[2021-05-24 05:51] LABS: POTASSIUM 2.8 mmol/L (3.5-5.1)
[2021-05-24] MEDS: LEVOTHYROXINE SODIUM 50 MCG TAB PO SCH (06:00)
[2021-05-24] MEDS ORDERED: POTASSIUM CHLORIDE 20 MEQ TAB CR PO ONE (06:40)
[2021-05-24] MEDS: HYDROCODONE/APAP 7.5MG-325MG 1 EA TAB PO PRN (07:25)
[2021-05-24] MEDS ORDERED: POTASSIUM CHLORIDE 20MEQ/100ML 100 ML IV ONE (08:00)
[2021-05-24] MEDS ORDERED: POTASSIUM CHLORIDE 20MEQ/100ML 300 ML IV ONE (08:45)
[2021-05-24] MEDS: SITAGLIPTIN 100 MG TAB PO SCH (09:00)
[2021-05-24] MEDS: OXYBUTYNIN CHLORIDE XL 5 MG TAB PO SCH (09:00)
[2021-05-24] MEDS: TAMSULOSIN HCL 0.4 MG CAP PO SCH (09:00)
[2021-05-24] MEDS: ESCITALOPRAM OXALATE 10 MG TAB PO SCH (09:00)
[2021-05-24] MEDS: MEMANTINE 10 MG TAB PO SCH ×2 (09:00→16:41)
[2021-05-24] MEDS: DOCUSATE SODIUM 100 MG CAP PO SCH ×2 (09:00→16:41)
[2021-05-24] MEDS: ZINC SULFATE 220 MG CAP PO SCH ×2 (09:00→16:41)
[2021-05-24] MEDS: MULTIVITAMINS/MINERALS TAB PO SCH (09:00)
[2021-05-24] MEDS: FENOFIBRATE 145 MG TAB PO SCH (09:00)
[2021-05-24] MEDS: OYST-CAL-D 500MG TABLET PO SCH (09:00)
[2021-05-24] MEDS: MAGNESIUM OXIDE 400 MG TAB PO SCH ×2 (09:00→16:41)
[2021-05-24] MEDS: AMLODIPINE BESYLATE 5 MG TAB PO SCH (09:00)
[2021-05-24] MEDS: ASCORBIC ACID 500 MG TAB PO SCH ×2 (09:00→16:41)
[2021-05-24] MEDS: HYDROXYZINE HCL 10 MG TAB PO SCH (09:00)
[2021-05-24] MEDS: INSULIN LISPRO 100 UNIT/1 ML 3ML VIAL SQ SCH ×4 (09:16→21:28)
[2021-05-24] MEDS: DONEPEZIL HCL 5 MG TAB PO SCH (21:28)
[2021-05-25] VITALS (8 sets, daily range): BP systolic 116–159; BP diastolic 77–104
[2021-05-25] MEDS: Morphine 2mg Syringe 2 MG/ML SYR IV PRN ×2 (01:42→06:22)
[2021-05-25] MEDS: SODIUM CHLORIDE 0.9% 1000ML 1,000 ML IV SCH ×3 (04:59→22:22)
[2021-05-25 06:22] LABS: BASOPHILS % 0.3 % (0.0-1.0); EOSINOPHILS # (AUTO) 0.2 (0.0-0.4); EOSINOPHILS % 2.2 % (0.0-6.0); HEMATOCRIT 33.4 % (38.2-49.6); HEMOGLOBIN 10.3 g/dL (14.0-18.0); LYMPHOCYTES # (AUTO) 0.8 (1.0-3.2); LYMPHOCYTES % 7.9 % (18.0-39.1); MEAN CORPUSCULAR HEMOGLOBIN 31.2 pg (28-32); MEAN CORPUSCULAR HGB CONC 30.8 g/dL (31-35); MEAN CORPUSCULAR VOLUME 101.2 fL (81-99); MONOCYTES # (AUTO) 1.6 (0.2-0.8); NEUTROPHILS # (AUTO) 7.1 (2.1-6.9); NEUTROPHILS % 72.6 % (38.7-80.0); PLATELET COUNT 140 x10e3/uL (140-360)
[2021-05-25 06:51] LABS: ANION GAP 13.6 mmol/L (8-16); CALCIUM 8.7 mg/dL (8.4-10.2); CREATININE, SERUM 0.74 mg/dL (0.72-1.25); MAGNESIUM 1.7 MG/DL (1.3-2.1); PHOSPHORUS 1.8 MG/DL (2.3-4.7); POTASSIUM 3.6 mmol/L (3.5-5.1)
[2021-05-25] MEDS: LEVOTHYROXINE SODIUM 50 MCG TAB PO SCH (06:53)
[2021-05-25] MEDS: PIPERACILLIN/TAZOBACTAM 3.375 GM in SODIUM CHLORIDE 0.9% 50ML 50 ML IV SCH ×4 (06:53→23:53)
[2021-05-25] MEDS: INSULIN LISPRO 100 UNIT/1 ML 3ML VIAL SQ SCH ×4 (07:30→21:18)
[2021-05-25] MEDS: HYDROXYZINE HCL 10 MG TAB PO SCH (09:29)
[2021-05-25] MEDS: DOCUSATE SODIUM 100 MG CAP PO SCH ×2 (09:29→16:53)
[2021-05-25] MEDS: ESCITALOPRAM OXALATE 10 MG TAB PO SCH (09:30)
[2021-05-25] MEDS: SITAGLIPTIN 100 MG TAB PO SCH (09:30)
[2021-05-25] MEDS: OXYBUTYNIN CHLORIDE XL 5 MG TAB PO SCH (09:30)
[2021-05-25] MEDS: FUROSEMIDE 20 MG TAB PO SCH (09:30)
[2021-05-25] MEDS: TAMSULOSIN HCL 0.4 MG CAP PO SCH (09:30)
[2021-05-25] MEDS: MAGNESIUM OXIDE 400 MG TAB PO SCH ×2 (09:31→16:54)
[2021-05-25] MEDS: MEMANTINE 10 MG TAB PO SCH ×2 (09:31→16:54)
[2021-05-25] MEDS: AMLODIPINE BESYLATE 5 MG TAB PO SCH (09:31)
[2021-05-25] MEDS: MULTIVITAMINS/MINERALS TAB PO SCH (09:31)
[2021-05-25] MEDS: FENOFIBRATE 145 MG TAB PO SCH (09:32)
[2021-05-25] MEDS: ASCORBIC ACID 500 MG TAB PO SCH ×2 (09:32→16:54)
[2021-05-25] MEDS: OYST-CAL-D 500MG TABLET PO SCH (09:32)
[2021-05-25] MEDS: ZINC SULFATE 220 MG CAP PO SCH ×2 (09:33→16:54)
[2021-05-25] MEDS: HYDROCODONE/APAP 7.5MG-325MG 1 EA TAB PO PRN (16:55)
[2021-05-25] MEDS ORDERED: PHOSPHORUS 250 MG TAB PO ONE (19:00)
[2021-05-25] MEDS: DONEPEZIL HCL 5 MG TAB PO SCH (21:18)
[2021-05-26] VITALS (7 sets, daily range): BP systolic 132–150; BP diastolic 71–90
[2021-05-26] MEDS: PIPERACILLIN/TAZOBACTAM 3.375 GM in SODIUM CHLORIDE 0.9% 50ML 50 ML IV SCH ×4 (05:33→23:03)
[2021-05-26] MEDS: LEVOTHYROXINE SODIUM 50 MCG TAB PO SCH (06:40)
[2021-05-26] MEDS: INSULIN LISPRO 100 UNIT/1 ML 3ML VIAL SQ SCH ×4 (07:30→21:00)
[2021-05-26 07:47] LABS: BASOPHILS % 0.3 % (0.0-1.0); EOSINOPHILS # (AUTO) 0.1 (0.0-0.4); EOSINOPHILS % 1.5 % (0.0-6.0); HEMATOCRIT 30.6 % (38.2-49.6); HEMOGLOBIN 9.4 g/dL (14.0-18.0); LYMPHOCYTES # (AUTO) 0.8 (1.0-3.2); LYMPHOCYTES % 11.1 % (18.0-39.1); MEAN CORPUSCULAR HEMOGLOBIN 31.2 pg (28-32); MEAN CORPUSCULAR HGB CONC 30.7 g/dL (31-35); MEAN CORPUSCULAR VOLUME 101.7 fL (81-99); MONOCYTES # (AUTO) 1.1 (0.2-0.8); MONOCYTES % 15.5 % (4.4-11.3); NEUTROPHILS # (AUTO) 5.1 (2.1-6.9); NEUTROPHILS % 70.5 % (38.7-80.0); PLATELET COUNT 118 x10e3/uL (140-360); RED BLOOD COUNT 3.01 x10e6/uL (4.3-5.7); RED CELL DISTRIBUTION WIDTH 14.9 % (11.7-14.4)
[2021-05-26 07:53] LABS: CALCIUM 8.9 mg/dL (8.4-10.2); CREATININE, SERUM 0.68 mg/dL (0.72-1.25)
[2021-05-26] MEDS ORDERED: ONDANSETRON HCL 4 MG ORAL DISINTEGRATING TAB PO PRN (08:00)
[2021-05-26] MEDS: DOCUSATE SODIUM 100 MG CAP PO SCH ×2 (09:30→18:04)
[2021-05-26] MEDS: HYDROXYZINE HCL 10 MG TAB PO SCH (09:30)
[2021-05-26] MEDS: OXYBUTYNIN CHLORIDE XL 5 MG TAB PO SCH (09:31)
[2021-05-26] MEDS: ESCITALOPRAM OXALATE 10 MG TAB PO SCH (09:31)
[2021-05-26] MEDS: SITAGLIPTIN 100 MG TAB PO SCH (09:31)
[2021-05-26] MEDS: TAMSULOSIN HCL 0.4 MG CAP PO SCH (09:31)
[2021-05-26] MEDS: AMLODIPINE BESYLATE 5 MG TAB PO SCH (09:32)
[2021-05-26] MEDS: OYST-CAL-D 500MG TABLET PO SCH (09:32)
[2021-05-26] MEDS: FENOFIBRATE 145 MG TAB PO SCH (09:32)
[2021-05-26] MEDS: MAGNESIUM OXIDE 400 MG TAB PO SCH ×2 (09:32→18:04)
[2021-05-26] MEDS: MEMANTINE 10 MG TAB PO SCH ×2 (09:32→18:04)
[2021-05-26] MEDS: MULTIVITAMINS/MINERALS TAB PO SCH (09:32)
[2021-05-26] MEDS: ASCORBIC ACID 500 MG TAB PO SCH ×2 (09:33→18:04)
[2021-05-26] MEDS: SODIUM CHLORIDE 0.9% 1000ML 1,000 ML IV SCH ×2 (09:33→20:45)
[2021-05-26] MEDS: ZINC SULFATE 220 MG CAP PO SCH ×2 (09:33→18:04)
[2021-05-26] MEDS ORDERED: POTASSIUM CHLORIDE 20 MEQ TAB CR PO STA (12:14)
[2021-05-26] MEDS: DONEPEZIL HCL 5 MG TAB PO SCH (21:00)
[2021-05-27] VITALS (7 sets, daily range): BP systolic 133–175; BP diastolic 74–127
[2021-05-27] MEDS: PIPERACILLIN/TAZOBACTAM 3.375 GM in SODIUM CHLORIDE 0.9% 50ML 50 ML IV SCH ×3 (05:22→18:00)
[2021-05-27] MEDS: LEVOTHYROXINE SODIUM 50 MCG TAB PO SCH (05:22)
[2021-05-27] MEDS: SODIUM CHLORIDE 0.9% 1000ML 1,000 ML IV SCH ×2 (06:45→16:45)
[2021-05-27] MEDS: TAMSULOSIN HCL 0.4 MG CAP PO SCH (10:07)
[2021-05-27] MEDS: MAGNESIUM OXIDE 400 MG TAB PO SCH ×2 (10:07→17:00)
[2021-05-27] MEDS: MEMANTINE 10 MG TAB PO SCH ×2 (10:07→17:00)
[2021-05-27] MEDS: MULTIVITAMINS/MINERALS TAB PO SCH (10:07)
[2021-05-27] MEDS: HYDROXYZINE HCL 10 MG TAB PO SCH (10:07)
[2021-05-27] MEDS: DOCUSATE SODIUM 100 MG CAP PO SCH ×2 (10:07→17:00)
[2021-05-27] MEDS: OXYBUTYNIN CHLORIDE XL 5 MG TAB PO SCH (10:07)
[2021-05-27] MEDS: SITAGLIPTIN 100 MG TAB PO SCH (10:07)
[2021-05-27] MEDS: ESCITALOPRAM OXALATE 10 MG TAB PO SCH (10:07)
[2021-05-27] MEDS: FUROSEMIDE 20 MG TAB PO SCH (10:07)
[2021-05-27] MEDS: ZINC SULFATE 220 MG CAP PO SCH ×2 (10:08→17:00)
[2021-05-27] MEDS: AMLODIPINE BESYLATE 5 MG TAB PO SCH (10:08)
[2021-05-27] MEDS: FENOFIBRATE 145 MG TAB PO SCH (10:08)
[2021-05-27] MEDS: ASCORBIC ACID 500 MG TAB PO SCH ×2 (10:08→17:00)
[2021-05-27] MEDS: OYST-CAL-D 500MG TABLET PO SCH (10:08)
[2021-05-27] MEDS: INSULIN LISPRO 100 UNIT/1 ML 3ML VIAL SQ SCH ×3 (10:20→16:18)
[2021-05-27] MEDS ORDERED: FUROSEMIDE INJ 10 MG/ML 4 ML VIAL IV ONE (11:00)
== END 2021-05-27 23:26 | DRG 240 ==
LOC: ER 07:15 → ERHOLD 08:41 → MED/SURG2 05-21 07:26
PROVIDERS: ADMIT Internal Medicine; ATTEND Internal Medicine
PROC: 0Y6H0Z3 Detachment at Right Lower Leg, Low, Open Approach (ICD-10-PCS; principal; 2021-05-23 11:00)
DX: E11.52 Type 2 diabetes mellitus with diabetic peripheral angiopathy with gangrene (principal); I96 Gangrene, not elsewhere classified; M62.82 Rhabdomyolysis; I10 Essential (primary) hypertension; E78.5 Hyperlipidemia, unspecified; F03.90 Unspecified dementia, unspecified severity, without behavioral disturbance, psychotic disturbance, mood disturbance, and anxiety; I48.91 Unspecified atrial fibrillation; H91.93 Unspecified hearing loss, bilateral; E11.621 Type 2 diabetes mellitus with foot ulcer; L97.519 Non-pressure chronic ulcer of other part of right foot with unspecified severity; I72.4 Aneurysm of artery of lower extremity; R00.1 Bradycardia, unspecified; E83.42 Hypomagnesemia; E87.6 Hypokalemia; E11.69 Type 2 diabetes mellitus with other specified complication; E83.39 Other disorders of phosphorus metabolism; E88.09 Other disorders of plasma-protein metabolism, not elsewhere classified; Z20.822 Contact with and (suspected) exposure to COVID-19; Z95.820 Peripheral vascular angioplasty status with implants and grafts; Z82.49 Family history of ischemic heart disease and other diseases of the circulatory system; Z83.3 Family history of diabetes mellitus
CPT/HCPCS: 36415; 71045; 80048; 80053; 82550; 82553; 82948; 83735; 84100; 84443; 84484; 85025; 85610; 85730; 87040; 87493; 88304; 88307; 88311; 93005; 93306; 94799; 96372; 97139; 99285; J0360; J1940; J2001; J2270; J2405; J2543; J3010; J3410; J3475; J3480; J7030; J7050; U0002

== ENCOUNTER 2021-09-08 23:06 | Inpatient (IN) | payer MEDICARE ==
[~2021-09-08] VITALS: Ht 177.8 cm; Wt 84.8 kg
[~2021-09-08 23:06] MED LIST changes: +ACTOS15 MG PO; +FLOMAX0.4 MG PO; +FOSINOPRIL SODI10 MG PO; +K-DUR10 MEQ PO; +MEMANTINE HCL E28 MG PO; +TYLENOL#3
[2021-09-09] VITALS (7 sets, daily range): BP systolic 120–155; BP diastolic 70–96
[2021-09-09] MEDS ORDERED: POTASSIUM CHLORIDE 20 MEQ TAB CR PO STA (00:37)
[2021-09-09] MEDS ORDERED: IOPAMIDOL 370 MG/ML 100 ML INFUS..BTL INJ ONE (00:37)
[2021-09-09] MEDS ORDERED: FUROSEMIDE INJ 10 MG/ML 4 ML VIAL IV ONE (00:45)
[2021-09-09] MEDS ORDERED: FUROSEMIDE INJ 10 MG/ML 4 ML VIAL ONE (00:52)
[2021-09-09] MEDS ORDERED: POTASSIUM CHLORIDE 20 MEQ TAB CR PO ONE (00:52)
[2021-09-09] MEDS ORDERED: ASPIRIN 81 MG CHEW TAB PO ONE (01:15)
[2021-09-09] MEDS ORDERED: SODIUM CHLORIDE FLUSH 10 ML SYR INJ PRN (01:15)
[2021-09-09 01:58] LABS: CREATINE KINASE MB 1.8 ng/mL (0-5.0)
[2021-09-09] MEDS ORDERED: DEXTROSE 50% SYRINGE 50 ML IV PRN (02:15)
[2021-09-09] MEDS ORDERED: FUROSEMIDE INJ 10 MG/ML 4 ML VIAL IV SCH (06:00)
[2021-09-09] MEDS: INSULIN LISPRO 100 UNIT/1 ML 3ML VIAL SQ SCH ×4 (07:30→21:00)
[2021-09-09] MEDS: FENOFIBRATE 145 MG TAB PO SCH (09:00)
[2021-09-09] MEDS: BALSAM PERU/CASTOR OIL 60 GM OINT...G. TP SCH (09:00)
[2021-09-09] MEDS ORDERED: ACETAMINOPHEN 325 MG TAB PO PRN (09:00)
[2021-09-09] MEDS ORDERED: HYDRALAZINE HCL 20 MG/ML VIAL IV PRN (09:00)
[2021-09-09] MEDS: FAMOTIDINE 20 MG TAB PO SCH (09:00)
[2021-09-09] MEDS ORDERED: OYST-CAL-D 500MG TABLET PO SCH (09:00)
[2021-09-09] MEDS ORDERED: AMLODIPINE BESYLATE 5 MG TAB PO SCH (09:00)
[2021-09-09] MEDS ORDERED: FOSINOPRIL SODIUM 10 MG TAB PO SCH (09:00)
[2021-09-09 09:09] LABS: BASOPHILS # (AUTO) 0.1 (0.0-0.1); EOSINOPHILS # (AUTO) 0.4 (0.0-0.4); EOSINOPHILS % 6.7 % (0.0-6.0); HEMATOCRIT 35.7 % (38.2-49.6); HEMOGLOBIN 11.4 g/dL (14.0-18.0); LYMPHOCYTES # (AUTO) 0.8 (1.0-3.2); LYMPHOCYTES % 14.2 % (18.0-39.1); MEAN CORPUSCULAR HEMOGLOBIN 31.1 pg (28-32); MEAN CORPUSCULAR HGB CONC 31.9 g/dL (31-35); MEAN CORPUSCULAR VOLUME 97.5 fL (81-99); MONOCYTES % 16.6 % (4.4-11.3); NEUTROPHILS # (AUTO) 3.6 (2.1-6.9); NEUTROPHILS % 61.3 % (38.7-80.0); PLATELET COUNT 120 x10e3/uL (140-360); RED BLOOD COUNT 3.66 x10e6/uL (4.3-5.7); RED CELL DISTRIBUTION WIDTH 18.1 % (11.7-14.4)
[2021-09-09 09:32] LABS: CREATINE KINASE MB 1.8 ng/mL (0-5.0)
[2021-09-09] MEDS: SITAGLIPTIN 100 MG TAB PO SCH (12:30)
[2021-09-09] MEDS: PANTOPRAZOLE SOD 40 MG TABEC PO SCH (12:30)
[2021-09-09] MEDS: VITAMIN E 400 UNIT CAP PO SCH (12:30)
[2021-09-09] MEDS: CLOPIDOGREL BISULFATE 75 MG TAB PO SCH (12:30)
[2021-09-09] MEDS: PIOGLITAZONE HCL 15 MG TAB PO SCH (12:30)
[2021-09-09] MEDS: FUROSEMIDE INJ 10 MG/ML 4 ML VIAL IV SCH (12:30)
[2021-09-09] MEDS: TAMSULOSIN HCL 0.4 MG CAP PO SCH (12:30)
[2021-09-09] MEDS: ESCITALOPRAM OXALATE 10 MG TAB PO SCH (12:30)
[2021-09-09] MEDS: HYDROXYZINE HCL 10 MG TAB PO SCH (12:30)
[2021-09-09] MEDS: MULTIVITAMINS/MINERALS TAB PO SCH (12:30)
[2021-09-09] MEDS: ASCORBIC ACID 500 MG TAB PO SCH (12:30)
[2021-09-09] MEDS: IPRATROPIUM BROMIDE 0.02% 2.5 ML NEB NEB SCH (13:00)
[2021-09-09] MEDS ORDERED: TAMSULOSIN HCL 0.4 MG CAP PO SCH (17:00)
[2021-09-09 17:02] LABS: CREATINE KINASE MB 1.7 ng/mL (0-5.0)
[2021-09-09] MEDS ORDERED: ATORVASTATIN 20 MG TAB PO SCH (21:00)
[2021-09-09] MEDS: OYST-CAL-D 500MG TABLET PO SCH (22:00)
[2021-09-09] MEDS: DOXEPIN HCL 10 MG CAP PO SCH (22:00)
[2021-09-09] MEDS: DONEPEZIL HCL 5 MG TAB PO SCH (22:00)
[2021-09-09 22:35] LABS: CLARITY,URINE CLEAR (CLEAR); COLOR,URINE YELLOW (YELLOW)
[2021-09-09 22:36] LABS: KETONES,URINE NEGATIVE (NEGATIVE); LEUKOCYTE ESTERASE ,URINE NEGATIVE (NEGATIVE); NITRITE,URINE NEGATIVE (NEGATIVE); PROTEIN,URINE DIPSTICK NEGATIVE (NEGATIVE); URINE UROBILINOGEN 0.2 mg/dL (0.2 - 1)
[2021-09-09 22:45] LABS: BACTERIA,URINE MANY /HPF; EPITHELIAL CELLS,URINE FEW /LPF; RBC,URINE 0-5 /HPF (0-5)
[2021-09-10] VITALS (8 sets, daily range): BP systolic 127–152; BP diastolic 78–95
[2021-09-10] MEDS: IPRATROPIUM BROMIDE 0.02% 2.5 ML NEB NEB SCH ×5 (00:45→23:55)
[2021-09-10 06:47] LABS: EOSINOPHILS # (AUTO) 0.3 (0.0-0.4); EOSINOPHILS % 7.6 % (0.0-6.0); HEMATOCRIT 32.1 % (38.2-49.6); HEMOGLOBIN 10.7 g/dL (14.0-18.0); LYMPHOCYTES # (AUTO) 1.1 (1.0-3.2); MEAN CORPUSCULAR HEMOGLOBIN 33.1 pg (28-32); MEAN CORPUSCULAR HGB CONC 33.3 g/dL (31-35); MEAN CORPUSCULAR VOLUME 99.4 fL (81-99); MONOCYTES # (AUTO) 0.8 (0.2-0.8); MONOCYTES % 18.7 % (4.4-11.3); NEUTROPHILS # (AUTO) 1.9 (2.1-6.9); NEUTROPHILS % 45.5 % (38.7-80.0); PLATELET COUNT 84 x10e3/uL (140-360); RED BLOOD COUNT 3.23 x10e6/uL (4.3-5.7); RED CELL DISTRIBUTION WIDTH 18.6 % (11.7-14.4)
[2021-09-10 07:04] LABS: ALBUMIN 2.7 g/dL (3.5-5.0); ALBUMIN/GLOBULIN RATIO 0.9 (0.8-2.0); ANION GAP 10.6 mmol/L (8-16); CALCIUM 8.6 mg/dL (8.4-10.2); CHOL/HDL RATIO 3.7 (3.9-4.7); CREATININE, SERUM 0.87 mg/dL (0.72-1.25); POTASSIUM 3.6 mmol/L (3.5-5.1)
[2021-09-10 07:27] LABS: THYROID STIMULATING HORMONE 2.095 uIU/mL (0.350-4.940)
[2021-09-10] MEDS: INSULIN LISPRO 100 UNIT/1 ML 3ML VIAL SQ SCH ×4 (07:30→20:43)
[2021-09-10] MEDS: PIOGLITAZONE HCL 15 MG TAB PO SCH (08:55)
[2021-09-10] MEDS: TAMSULOSIN HCL 0.4 MG CAP PO SCH (08:55)
[2021-09-10] MEDS: FUROSEMIDE INJ 10 MG/ML 4 ML VIAL IV SCH (08:55)
[2021-09-10] MEDS: FOSINOPRIL SODIUM 10 MG TAB PO SCH (08:55)
[2021-09-10] MEDS: ESCITALOPRAM OXALATE 10 MG TAB PO SCH (08:55)
[2021-09-10] MEDS: SITAGLIPTIN 100 MG TAB PO SCH (08:55)
[2021-09-10] MEDS: FAMOTIDINE 20 MG TAB PO SCH (08:56)
[2021-09-10] MEDS: MULTIVITAMINS/MINERALS TAB PO SCH (08:56)
[2021-09-10] MEDS: OYST-CAL-D 500MG TABLET PO SCH ×3 (08:56→20:56)
[2021-09-10] MEDS: CLOPIDOGREL BISULFATE 75 MG TAB PO SCH (08:57)
[2021-09-10] MEDS: PANTOPRAZOLE SOD 40 MG TABEC PO SCH (08:57)
[2021-09-10] MEDS: VITAMIN E 400 UNIT CAP PO SCH (08:57)
[2021-09-10] MEDS: ASCORBIC ACID 500 MG TAB PO SCH (08:57)
[2021-09-10] MEDS: BALSAM PERU/CASTOR OIL 60 GM OINT...G. TP SCH (08:57)
[2021-09-10] MEDS: FENOFIBRATE 145 MG TAB PO SCH (08:57)
[2021-09-10] MEDS ORDERED: FUROSEMIDE INJ 10 MG/ML 4 ML VIAL IV SCH (09:00)
[2021-09-10] MEDS: HYDROXYZINE HCL 10 MG TAB PO SCH (09:00)
[2021-09-10] MEDS: DOXEPIN HCL 10 MG CAP PO SCH (20:56)
[2021-09-10] MEDS: ATORVASTATIN 20 MG TAB PO SCH (20:56)
[2021-09-10] MEDS: DONEPEZIL HCL 5 MG TAB PO SCH (20:56)
[2021-09-11] VITALS (8 sets, daily range): BP systolic 114–149; BP diastolic 70–89
[2021-09-11] MEDS: INSULIN LISPRO 100 UNIT/1 ML 3ML VIAL SQ SCH ×4 (07:30→20:51)
[2021-09-11] MEDS: IPRATROPIUM BROMIDE 0.02% 2.5 ML NEB NEB SCH ×3 (07:37→19:21)
[2021-09-11] MEDS: HYDROXYZINE HCL 10 MG TAB PO SCH (08:17)
[2021-09-11] MEDS: FUROSEMIDE INJ 10 MG/ML 4 ML VIAL IV SCH (08:17)
[2021-09-11] MEDS: TAMSULOSIN HCL 0.4 MG CAP PO SCH (08:17)
[2021-09-11] MEDS: ASPIRIN 81 MG ENTERIC COATED PO SCH (08:17)
[2021-09-11] MEDS: MULTIVITAMINS/MINERALS TAB PO SCH (08:17)
[2021-09-11] MEDS: PIOGLITAZONE HCL 15 MG TAB PO SCH (08:17)
[2021-09-11] MEDS: SITAGLIPTIN 100 MG TAB PO SCH (08:17)
[2021-09-11] MEDS: ASCORBIC ACID 500 MG TAB PO SCH (08:18)
[2021-09-11] MEDS: CLOPIDOGREL BISULFATE 75 MG TAB PO SCH (08:18)
[2021-09-11] MEDS: VITAMIN E 400 UNIT CAP PO SCH (08:18)
[2021-09-11] MEDS: OYST-CAL-D 500MG TABLET PO SCH ×3 (08:18→20:41)
[2021-09-11] MEDS: PANTOPRAZOLE SOD 40 MG TABEC PO SCH (08:18)
[2021-09-11] MEDS: ESCITALOPRAM OXALATE 10 MG TAB PO SCH (08:19)
[2021-09-11] MEDS: FAMOTIDINE 20 MG TAB PO SCH (08:26)
[2021-09-11] MEDS: FENOFIBRATE 145 MG TAB PO SCH (08:26)
[2021-09-11] MEDS: FOSINOPRIL SODIUM 10 MG TAB PO SCH (08:26)
[2021-09-11] MEDS: CARVEDILOL 3.125 MG TAB PO SCH (17:00)
[2021-09-11] MEDS: DONEPEZIL HCL 5 MG TAB PO SCH (20:41)
[2021-09-11] MEDS: ATORVASTATIN 20 MG TAB PO SCH (20:41)
[2021-09-11] MEDS: DOXEPIN HCL 10 MG CAP PO SCH (20:41)
[2021-09-12 05:15] VITALS: BP 123/77
[2021-09-12] MEDS: IPRATROPIUM BROMIDE 0.02% 2.5 ML NEB NEB SCH ×2 (06:10)
[2021-09-12] MEDS: INSULIN LISPRO 100 UNIT/1 ML 3ML VIAL SQ SCH ×2 (07:30→11:30)
[2021-09-12] MEDS ORDERED: LASIX40 MG PO (07:58)
[2021-09-12 08:00] VITALS: BP 137/89
[2021-09-12 08:10] VITALS: BP 137/89
[2021-09-12] MEDS: BALSAM PERU/CASTOR OIL 60 GM OINT...G. TP SCH (08:39)
[2021-09-12] MEDS: FUROSEMIDE INJ 10 MG/ML 4 ML VIAL IV SCH (08:42)
[2021-09-12] MEDS: ASPIRIN 81 MG ENTERIC COATED PO SCH (08:44)
[2021-09-12] MEDS: CARVEDILOL 3.125 MG TAB PO SCH (08:44)
[2021-09-12] MEDS: HYDROXYZINE HCL 10 MG TAB PO SCH (08:44)
[2021-09-12] MEDS: PIOGLITAZONE HCL 15 MG TAB PO SCH (08:44)
[2021-09-12] MEDS: ESCITALOPRAM OXALATE 10 MG TAB PO SCH (08:44)
[2021-09-12] MEDS: SITAGLIPTIN 100 MG TAB PO SCH (08:44)
[2021-09-12] MEDS: TAMSULOSIN HCL 0.4 MG CAP PO SCH (08:44)
[2021-09-12] MEDS: MULTIVITAMINS/MINERALS TAB PO SCH (08:46)
[2021-09-12] MEDS: OYST-CAL-D 500MG TABLET PO SCH (08:46)
[2021-09-12] MEDS: CLOPIDOGREL BISULFATE 75 MG TAB PO SCH (08:46)
[2021-09-12] MEDS: FAMOTIDINE 20 MG TAB PO SCH (08:46)
[2021-09-12] MEDS: FENOFIBRATE 145 MG TAB PO SCH (08:46)
[2021-09-12] MEDS: VITAMIN E 400 UNIT CAP PO SCH (08:46)
[2021-09-12] MEDS: PANTOPRAZOLE SOD 40 MG TABEC PO SCH (08:46)
[2021-09-12] MEDS: ASCORBIC ACID 500 MG TAB PO SCH (08:46)
[2021-09-12] MEDS: FOSINOPRIL SODIUM 10 MG TAB PO SCH (08:46)
[2021-09-12 11:32] VITALS: BP 133/78
[2021-09-13] MEDS ORDERED: FUROSEMIDE 40 MG TAB PO SCH (09:00)
== END 2021-09-12 13:00 | disposition home health service (06) | DRG 291 ==
LOC: FSED 23:14 → ERHOLD 09-09 01:18 → MED/SURG3 09-09 03:32
PROVIDERS: ADMIT Internal Medicine; ATTEND Internal Medicine
DX: I11.0 Hypertensive heart disease with heart failure (principal); I50.43 Acute on chronic combined systolic (congestive) and diastolic (congestive) heart failure; J96.00 Acute respiratory failure, unspecified whether with hypoxia or hypercapnia; K27.9 Peptic ulcer, site unspecified, unspecified as acute or chronic, without hemorrhage or perforation; E78.5 Hyperlipidemia, unspecified; I25.10 Atherosclerotic heart disease of native coronary artery without angina pectoris; E11.51 Type 2 diabetes mellitus with diabetic peripheral angiopathy without gangrene; Z79.899 Other long term (current) drug therapy; F03.90 Unspecified dementia, unspecified severity, without behavioral disturbance, psychotic disturbance, mood disturbance, and anxiety; I48.0 Paroxysmal atrial fibrillation; Z79.01 Long term (current) use of anticoagulants; Z89.511 Acquired absence of right leg below knee; Z20.822 Contact with and (suspected) exposure to COVID-19; E03.9 Hypothyroidism, unspecified; K22.89 Other specified disease of esophagus; N40.0 Benign prostatic hyperplasia without lower urinary tract symptoms
CPT/HCPCS: 36415; 71045; 71260; 76604; 80048; 80053; 80061; 80076; 81001; 82550; 82553; 82948; 83735; 83880; 84443; 84484; 85025; 85379; 93005; 93306; 93926; 93971; 94640; 94799; 96374; 99284; J1940; J3410; Q9967; U0002

== ENCOUNTER 2021-09-21 00:10 | Inpatient (IN) | payer MEDICARE ==
[~2021-09-21] VITALS: Ht 177.8 cm; Wt 84.8 kg
[2021-09-21] VITALS (9 sets, daily range): BP systolic 125–160; BP diastolic 76–103
[~2021-09-21 00:10] MED LIST changes: +LASIX40 MG PO; -MYRBETRIQ25 MG; +MYRBETRIQ25 MG PO; -TYLENOL#3; +TYLENOL#3 PO
[2021-09-21 00:29] LABS: BASOPHILS # (AUTO) 0.1 (0.0-0.1); BASOPHILS % 1.1 % (0.0-1.0); EOSINOPHILS # (AUTO) 0.6 (0.0-0.4); EOSINOPHILS % 12.5 % (0.0-6.0); HEMATOCRIT 34.8 % (38.2-49.6); HEMOGLOBIN 11.3 g/dL (14.0-18.0); LYMPHOCYTES % 20.2 % (18.0-39.1); MEAN CORPUSCULAR HEMOGLOBIN 31.6 pg (28-32); MEAN CORPUSCULAR HGB CONC 32.5 g/dL (31-35); MEAN CORPUSCULAR VOLUME 97.2 fL (81-99); MONOCYTES # (AUTO) 0.8 (0.2-0.8); MONOCYTES % 17.6 % (4.4-11.3); NEUTROPHILS # (AUTO) 2.3 (2.1-6.9); NEUTROPHILS % 48.2 % (38.7-80.0); PLATELET COUNT 118 x10e3/uL (140-360); RED BLOOD COUNT 3.58 x10e6/uL (4.3-5.7); RED CELL DISTRIBUTION WIDTH 16.8 % (11.7-14.4)
[2021-09-21 00:46] LABS: ANION GAP 12.2 mmol/L (8-16); CALCIUM 8.6 mg/dL (8.4-10.2); CREATININE, SERUM 1.03 mg/dL (0.72-1.25); POTASSIUM 3.2 mmol/L (3.5-5.1)
[2021-09-21 00:50] LABS: CREATINE KINASE MB 1.2 ng/mL (0-5.0)
[2021-09-21] MEDS ORDERED: FUROSEMIDE INJ 10 MG/ML 4 ML VIAL IV ONE (04:45)
[2021-09-21] MEDS ORDERED: FUROSEMIDE INJ 10 MG/ML 4 ML VIAL IV SCH (09:00)
[2021-09-21 09:59] LABS: CREATINE KINASE MB 1.7 ng/mL (0-5.0)
[2021-09-21] MEDS: BALSAM PERU/CASTOR OIL 60 GM OINT...G. TP SCH (10:00)
[2021-09-21] MEDS ORDERED: POTASSIUM CHLORIDE 20 MEQ TAB CR PO ONE (10:00)
[2021-09-21] MEDS ORDERED: AMLODIPINE BESYLATE 5 MG TAB PO SCH (10:00)
[2021-09-21 11:20] LABS: % IRON SATURATION 13 % (15-50); IRON 45 ug/dL (65-175); TOTAL IRON BINDING CAPACITY 360 ug/dL (261-478); TRANSFERRIN 257 mg/dL (174-364)
[2021-09-21] MEDS: SITAGLIPTIN 100 MG TAB PO SCH (11:49)
[2021-09-21] MEDS: PIOGLITAZONE HCL 15 MG TAB PO SCH (11:49)
[2021-09-21] MEDS: FAMOTIDINE 20 MG TAB PO SCH (11:50)
[2021-09-21] MEDS: PANTOPRAZOLE SOD 40 MG TABEC PO SCH ×2 (11:50→20:25)
[2021-09-21] MEDS: OYST-CAL-D 500MG TABLET PO SCH (11:50)
[2021-09-21] MEDS: ASCORBIC ACID 500 MG TAB PO SCH (11:50)
[2021-09-21] MEDS: ESCITALOPRAM OXALATE 10 MG TAB PO SCH (11:50)
[2021-09-21] MEDS: MULTIVITAMINS/MINERALS TAB PO SCH (11:50)
[2021-09-21] MEDS: FENOFIBRATE 145 MG TAB PO SCH (11:50)
[2021-09-21] MEDS: FOSINOPRIL SODIUM 10 MG TAB PO SCH (12:32)
[2021-09-21 15:00] LABS: CLARITY,URINE CLEAR (CLEAR); COLOR,URINE YELLOW (YELLOW); KETONES,URINE NEGATIVE (NEGATIVE); LEUKOCYTE ESTERASE ,URINE NEGATIVE (NEGATIVE); NITRITE,URINE NEGATIVE (NEGATIVE); PROTEIN,URINE DIPSTICK NEGATIVE (NEGATIVE); URINE UROBILINOGEN 0.2 mg/dL (0.2 - 1)
[2021-09-21 15:09] LABS: BACTERIA,URINE RARE /HPF; RBC,URINE 0-5 /HPF (0-5)
[2021-09-21 15:19] LABS: TOTAL PROTEIN, URINE < 6.8 mg/dL (1-14)
[2021-09-21] MEDS: FUROSEMIDE INJ 10 MG/ML 4 ML VIAL IV SCH (16:53)
[2021-09-21] MEDS: CARVEDILOL 3.125 MG TAB PO SCH (16:53)
[2021-09-21] MEDS: ENOXAPARIN SOD INJ 40 MG/0.4 ML SYR SC SCH (16:53)
[2021-09-21] MEDS: TAMSULOSIN HCL 0.4 MG CAP PO SCH (16:53)
[2021-09-21 19:08] LABS: CREATINE KINASE MB 1.9 ng/mL (0-5.0)
[2021-09-21] MEDS: ATORVASTATIN 40 MG TAB PO SCH (20:25)
[2021-09-21] MEDS: DONEPEZIL HCL 5 MG TAB PO SCH (20:25)
[2021-09-21] MEDS: DOXEPIN HCL 10 MG CAP PO SCH (20:25)
[2021-09-21] MEDS ORDERED: ATORVASTATIN 20 MG TAB PO SCH (21:00)
[2021-09-21] MEDS ORDERED: MAGNESIUM SULFATE 2GM/50ML 50 ML IV ONE (21:00)
[2021-09-22] VITALS (7 sets, daily range): BP systolic 97–132; BP diastolic 54–78
[2021-09-22 05:11] LABS: BASOPHILS % 0.9 % (0.0-1.0); EOSINOPHILS # (AUTO) 0.3 (0.0-0.4); EOSINOPHILS % 7.5 % (0.0-6.0); HEMATOCRIT 33.4 % (38.2-49.6); HEMOGLOBIN 10.6 g/dL (14.0-18.0); MEAN CORPUSCULAR HEMOGLOBIN 31.1 pg (28-32); MEAN CORPUSCULAR HGB CONC 31.7 g/dL (31-35); MEAN CORPUSCULAR VOLUME 97.9 fL (81-99); MONOCYTES # (AUTO) 0.9 (0.2-0.8); MONOCYTES % 19.7 % (4.4-11.3); NEUTROPHILS # (AUTO) 2.3 (2.1-6.9); NEUTROPHILS % 50.5 % (38.7-80.0); PLATELET COUNT 101 x10e3/uL (140-360); RED BLOOD COUNT 3.41 x10e6/uL (4.3-5.7)
[2021-09-22 05:58] LABS: CALCIUM 8.3 mg/dL (8.4-10.2)
[2021-09-22 06:17] LABS: ALBUMIN 2.7 g/dL (3.5-5.0); ALBUMIN/GLOBULIN RATIO 1.1 (0.8-2.0); ANION GAP 11.1 mmol/L (8-16); CREATININE, SERUM 1.14 mg/dL (0.72-1.25)
[2021-09-22] MEDS: PIOGLITAZONE HCL 15 MG TAB PO SCH (08:38)
[2021-09-22] MEDS: FUROSEMIDE INJ 10 MG/ML 4 ML VIAL IV SCH ×2 (08:38→16:07)
[2021-09-22] MEDS: CARVEDILOL 3.125 MG TAB PO SCH ×2 (08:39→16:08)
[2021-09-22] MEDS: SITAGLIPTIN 100 MG TAB PO SCH (08:39)
[2021-09-22] MEDS: ESCITALOPRAM OXALATE 10 MG TAB PO SCH (08:40)
[2021-09-22] MEDS: OYST-CAL-D 500MG TABLET PO SCH (08:41)
[2021-09-22] MEDS: BALSAM PERU/CASTOR OIL 60 GM OINT...G. TP SCH (08:41)
[2021-09-22] MEDS: MULTIVITAMINS/MINERALS TAB PO SCH (08:41)
[2021-09-22] MEDS: FOSINOPRIL SODIUM 10 MG TAB PO SCH (08:41)
[2021-09-22] MEDS: FAMOTIDINE 20 MG TAB PO SCH (08:41)
[2021-09-22] MEDS: ASCORBIC ACID 500 MG TAB PO SCH (08:41)
[2021-09-22] MEDS: PANTOPRAZOLE SOD 40 MG TABEC PO SCH (08:41)
[2021-09-22] MEDS: FENOFIBRATE 145 MG TAB PO SCH (08:41)
[2021-09-22] MEDS: NON-FORMULARY MEDICATION (Mirabegron (Myrbetriq) 25 MG) PO SCH (08:46)
[2021-09-22] MEDS ORDERED: POTASSIUM CHLORIDE 10MEQ EA PO ONE (09:45)
[2021-09-22] MEDS ORDERED: SALINE 0.65% NAS SOLN 1 SPRAY BTL PRN (13:00)
[2021-09-22] MEDS: TAMSULOSIN HCL 0.4 MG CAP PO SCH (16:08)
[2021-09-22] MEDS: ENOXAPARIN SOD INJ 40 MG/0.4 ML SYR SC SCH (17:25)
[2021-09-22] MEDS: ATORVASTATIN 40 MG TAB PO SCH (20:31)
[2021-09-22] MEDS: DONEPEZIL HCL 5 MG TAB PO SCH (20:31)
[2021-09-22] MEDS: DOXEPIN HCL 10 MG CAP PO SCH (20:31)
[2021-09-23] VITALS (13 sets, daily range): BP systolic 108–160; BP diastolic 61–87
[2021-09-23] MEDS: SODIUM CHLORIDE 0.9% 1000ML 1,000 ML IV SCH (04:20)
[2021-09-23 05:04] LABS: BASOPHILS % 1.1 % (0.0-1.0); EOSINOPHILS # (AUTO) 0.3 (0.0-0.4); EOSINOPHILS % 7.9 % (0.0-6.0); HEMATOCRIT 31.7 % (38.2-49.6); HEMOGLOBIN 10.1 g/dL (14.0-18.0); LYMPHOCYTES # (AUTO) 0.9 (1.0-3.2); LYMPHOCYTES % 24.7 % (18.0-39.1); MEAN CORPUSCULAR HEMOGLOBIN 31.1 pg (28-32); MEAN CORPUSCULAR HGB CONC 31.9 g/dL (31-35); MEAN CORPUSCULAR VOLUME 97.5 fL (81-99); MONOCYTES # (AUTO) 0.8 (0.2-0.8); MONOCYTES % 20.7 % (4.4-11.3); NEUTROPHILS # (AUTO) 1.7 (2.1-6.9); NEUTROPHILS % 45.3 % (38.7-80.0); PLATELET COUNT 101 x10e3/uL (140-360); RED BLOOD COUNT 3.25 x10e6/uL (4.3-5.7); RED CELL DISTRIBUTION WIDTH 16.9 % (11.7-14.4)
[2021-09-23 05:21] LABS: ALBUMIN 2.6 g/dL (3.5-5.0); ALBUMIN/GLOBULIN RATIO 0.9 (0.8-2.0); ANION GAP 10.4 mmol/L (8-16); CALCIUM 8.1 mg/dL (8.4-10.2); CREATININE, SERUM 1.11 mg/dL (0.72-1.25); MAGNESIUM 1.8 MG/DL (1.3-2.1); POTASSIUM 3.4 mmol/L (3.5-5.1)
[2021-09-23 05:44] LABS: THYROID STIMULATING HORMONE 5.736 uIU/mL (0.350-4.940)
[2021-09-23] MEDS: FUROSEMIDE INJ 10 MG/ML 4 ML VIAL IV SCH ×2 (09:00→17:24)
[2021-09-23] MEDS: PANTOPRAZOLE SOD 40 MG TABEC PO SCH (09:00)
[2021-09-23] MEDS: MULTIVITAMINS/MINERALS TAB PO SCH (09:00)
[2021-09-23] MEDS: SITAGLIPTIN 100 MG TAB PO SCH (09:00)
[2021-09-23] MEDS: CARVEDILOL 3.125 MG TAB PO SCH ×2 (09:00→17:25)
[2021-09-23] MEDS ORDERED: CLOPIDOGREL BISULFATE 75 MG TAB PO SCH (09:00)
[2021-09-23] MEDS ORDERED: POTASSIUM CHLORIDE 10MEQ EA PO SCH (09:00)
[2021-09-23] MEDS: ASCORBIC ACID 500 MG TAB PO SCH (09:00)
[2021-09-23] MEDS: NON-FORMULARY MEDICATION (Mirabegron (Myrbetriq) 25 MG) PO SCH (09:00)
[2021-09-23] MEDS: OYST-CAL-D 500MG TABLET PO SCH (09:00)
[2021-09-23] MEDS: FAMOTIDINE 20 MG TAB PO SCH (09:00)
[2021-09-23] MEDS: PIOGLITAZONE HCL 15 MG TAB PO SCH (09:00)
[2021-09-23] MEDS ORDERED: LIDOCAINE HCL 2% LOCAL 20 ML VIAL ONE (09:30)
[2021-09-23] MEDS ORDERED: HEPARIN SOD/SOD CHLORIDE 2,000 ML ONE (09:30)
[2021-09-23] MEDS ORDERED: HEPARIN SOD (PORCINE) 1000 UNIT/ML 30ML ONE (09:30)
[2021-09-23] MEDS ORDERED: VERAPAMIL HCL 2.5 MG/ML 2 ML VIAL ONE (09:31)
[2021-09-23] MEDS ORDERED: SODIUM CHLORIDE 0.9% 1000ML 1,000 ML ONE (09:31)
[2021-09-23] MEDS ORDERED: IOPAMIDOL 370 MG/ML 100 ML INFUS..BTL INJ ONE (09:31)
[2021-09-23] MEDS ORDERED: NITROGLYCERIN/D5W 200 MCG/ML 250 ML ONE (09:31)
[2021-09-23] MEDS ORDERED: MIDAZOLAM HCL 2 MG/2 ML VIAL ONE (10:20)
[2021-09-23] MEDS ORDERED: FENTANYL CITRATE/PF 100MCG/2 ML INJ ONE (10:20)
[2021-09-23] MEDS ORDERED: HYDRALAZINE HCL 20 MG/ML VIAL ONE (10:45)
[2021-09-23] MEDS: ASPIRIN 81 MG CHEW TAB PO SCH (12:46)
[2021-09-23] MEDS: ESCITALOPRAM OXALATE 10 MG TAB PO SCH (12:47)
[2021-09-23] MEDS: POTASSIUM CHLORIDE 10MEQ EA PO SCH (12:47)
[2021-09-23] MEDS: BALSAM PERU/CASTOR OIL 60 GM OINT...G. TP SCH (12:48)
[2021-09-23] MEDS: FENOFIBRATE 145 MG TAB PO SCH (12:48)
[2021-09-23] MEDS: FOSINOPRIL SODIUM 10 MG TAB PO SCH (12:48)
[2021-09-23] MEDS: TAMSULOSIN HCL 0.4 MG CAP PO SCH (17:25)
[2021-09-23] MEDS: DOXEPIN HCL 10 MG CAP PO SCH (21:56)
[2021-09-23] MEDS: ATORVASTATIN 40 MG TAB PO SCH (21:56)
[2021-09-23] MEDS: DONEPEZIL HCL 5 MG TAB PO SCH (21:56)
[2021-09-24] VITALS: BP 119/72
[2021-09-24 04:00] VITALS: BP 121/62
[2021-09-24] MEDS: SODIUM CHLORIDE 0.9% 1000ML 1,000 ML IV SCH (06:40)
[2021-09-24 07:49] VITALS: BP 143/71
[2021-09-24] MEDS: FUROSEMIDE INJ 10 MG/ML 4 ML VIAL IV SCH (08:46)
[2021-09-24] MEDS: NON-FORMULARY MEDICATION (Mirabegron (Myrbetriq) 25 MG) PO SCH (08:46)
[2021-09-24] MEDS: ASPIRIN 81 MG CHEW TAB PO SCH (08:47)
[2021-09-24] MEDS: PIOGLITAZONE HCL 15 MG TAB PO SCH (08:47)
[2021-09-24] MEDS: CARVEDILOL 3.125 MG TAB PO SCH (08:48)
[2021-09-24] MEDS: POTASSIUM CHLORIDE 10MEQ EA PO SCH (08:48)
[2021-09-24] MEDS: SITAGLIPTIN 100 MG TAB PO SCH (08:48)
[2021-09-24] MEDS: OYST-CAL-D 500MG TABLET PO SCH (08:49)
[2021-09-24] MEDS: ESCITALOPRAM OXALATE 10 MG TAB PO SCH (08:49)
[2021-09-24] MEDS: MULTIVITAMINS/MINERALS TAB PO SCH (08:49)
[2021-09-24] MEDS: FOSINOPRIL SODIUM 10 MG TAB PO SCH (08:49)
[2021-09-24] MEDS: ASCORBIC ACID 500 MG TAB PO SCH (08:50)
[2021-09-24] MEDS: FENOFIBRATE 145 MG TAB PO SCH (08:50)
[2021-09-24] MEDS: FAMOTIDINE 20 MG TAB PO SCH (08:50)
[2021-09-24] MEDS: PANTOPRAZOLE SOD 40 MG TABEC PO SCH (08:50)
[2021-09-24 08:54] VITALS: BP 143/71
[2021-09-24] MEDS: BALSAM PERU/CASTOR OIL 60 GM OINT...G. TP SCH (08:54)
[2021-09-24] MEDS ORDERED: COREG3.125 MG PO (09:48)
[2021-09-24 11:32] VITALS: BP 130/74
[2021-09-24 15:34] VITALS: BP 148/78
== END 2021-09-24 16:36 | disposition home or self-care (01) | DRG 286 ==
LOC: ER 00:13 → ERHOLD 01:28 → MED/SURG 02:34
PROVIDERS: ADMIT Internal Medicine; ATTEND Internal Medicine
PROC: 4A023N7 Measurement of Cardiac Sampling and Pressure, Left Heart, Percutaneous Approach (ICD-10-PCS; principal; 2021-09-23)
PROC: B2151ZZ Fluoroscopy of Left Heart using Low Osmolar Contrast (ICD-10-PCS; 2021-09-23)
PROC: B2111ZZ Fluoroscopy of Multiple Coronary Arteries using Low Osmolar Contrast (ICD-10-PCS; 2021-09-23)
DX: I11.0 Hypertensive heart disease with heart failure (principal); I50.23 Acute on chronic systolic (congestive) heart failure; I47.2 Ventricular tachycardia; E03.9 Hypothyroidism, unspecified; E11.51 Type 2 diabetes mellitus with diabetic peripheral angiopathy without gangrene; I48.91 Unspecified atrial fibrillation; K21.9 Gastro-esophageal reflux disease without esophagitis; E87.6 Hypokalemia; E78.00 Pure hypercholesterolemia, unspecified; Z89.511 Acquired absence of right leg below knee; Z20.822 Contact with and (suspected) exposure to COVID-19; F03.90 Unspecified dementia, unspecified severity, without behavioral disturbance, psychotic disturbance, mood disturbance, and anxiety; H91.90 Unspecified hearing loss, unspecified ear; N40.0 Benign prostatic hyperplasia without lower urinary tract symptoms; Z82.49 Family history of ischemic heart disease and other diseases of the circulatory system; I25.10 Atherosclerotic heart disease of native coronary artery without angina pectoris
CPT/HCPCS: 36415; 71045; 80053; 81001; 82270; 82550; 82553; 82570; 82948; 83540; 83735; 83880; 84156; 84443; 84466; 84484; 85025; 93005; 93458; 94799; 97139; 99152; 99251; 99284; C1766; C1887; J0360; J1644; J1650; J1940; J2001; J2250; J3010; J3475; J7030; Q9967; U0002